=== PATIENT | male | born 1945 | race Caucasian/White ===

== ENCOUNTER 2017-01-28 18:11 | Emergency (ER) | payer MEDICARE ==
[2017-01-28 18:25] VITALS: BP 145/85
[2017-01-28] MEDS ORDERED: Ondansetron 4 MG Tab.DIS PO ONE (18:51)
--- NOTE | 2017-01-28 18:55 | EDM.PDOC ---
ED HPI GENERAL MEDICAL PROBLEM - General Chief Complaint: Neurological Problem Stated Complaint: COLD SWEAT,NAUSEA,DIZZY Time Seen by Provider: 01/28/17 18:20 Source of Information: Reports: Patient, Family, RN Notes Reviewed History Limitations: Reports: No Limitations - History of Present Illness INITIAL COMMENTS - FREE TEXT/NARRATIVE: 71-year-old gentleman presents emergency department today complaint of dizziness , he states it came on suddenly while he was eating dinner the room was spinning rapidly by the time he presents emergency department that has resolved he was diaphoretic also resolved he still feels nauseated although the majority of the dizziness has improved. 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 didnt have chance to do- Other Neuro History: raya's palsy Psychiatric History: Reports: Addiction Endocrine/Metabolic History: Reports: Diabetes, Type II Other Endocrine/Metabolic History: familial hypercalcemia- [facility] [place] [place] [facility] of DNA Other Hematologic History: hypercalcemia- familial Other Dermatologic History: 2 month history of left hand bumps - Past Surgical History HEENT Surgical History: Reports: Other (See Below) Other HEENT Surgeries/Procedures: both side staminectomy Respiratory Surgical History: Reports: Other (See Below) Other Respiratory Surgeries/Procedures: bronchoscopy Musculoskeletal Surgical History: Reports: Other (See Below) Other Musculoskeletal Surgeries/Procedures:: arm surgery plate and ligment repair Social & Family History - Tobacco Use Smoking Status *Q: Never Smoker Years of Tobacco use: 5 Packs/Tins Daily: 0.5 Used Tobacco, but Quit: Yes Month Tobacco Last Used: march Second Hand Smoke Exposure: Yes - Caffeine Use Caffeine Use: Reports: None - Alcohol Use Days Per Week of Alcohol Use: 0 - Recreational Drug Use Recreational Drug Use: No Drug Use in Last 12 Months: No Recreational Drug Use Frequency: Not Used In Over 6 Months - Living Situation & Occupation Living situation: Reports: Occupation: Retired ED ROS GENERAL - Review of Systems Review Of Systems: See Below Constitutional: Reports: Diaphoresis HEENT: Reports: Other (Dizzy) Respiratory: Reports: No Symptoms Cardiovascular: Reports: No Symptoms GI/Abdominal: Reports: Nausea : Reports: No Symptoms Musculoskeletal: Reports: No Symptoms Skin: Reports: No Symptoms Neurological: Reports: Dizziness ED EXAM, DIZZINESS - Physical Exam Exam: See Below Text/Narrative:: General: Male, not in any distress, alert and oriented x3 HEENT: head is atraumatic normocephalic, eyes pupils equal round reactive to light, sclera clear no conjunctivitis appreciated, extraocular eye movements intact. Ears tympanic membranes clear and terry landmarks and light reflex are present bilaterally canals are clear. Nose no septal deviation, nares are clear, no blood present. Mouth mucosa is moist and pink no erythema or exudate noted in soft palate, tongue is midline uvula is midline, dentition is intact. Neck: Supple no thyromegaly no tracheal deviation. Nodes: Cervical nodes subclavicular nodes nontender no palpable lymphadenopathy noted. Lungs: clear to auscultation bilaterally with symmetrical respirations, no adventitious noise appreciated. CV: Regular rate and rhythm S1 and S2 appreciated no murmurs rubs or gallops noted. Abdomen: Soft, nontender, no palpable masses or organomegaly appreciated, no distention no guarding bowel sounds are present, [scars ]. Neuro: Cranial nerves II through XII grossly intact, hints exam negative Course - Vital Signs Last Recorded V/S: Last Vital Signs Temp 97.7 F 01/28/17 18:23 Pulse 91 01/28/17 18:23 Resp 18 01/28/17 18:23 BP 145/85 H 01/28/17 18:23 Pulse Ox 96 01/28/17 18:23 - Orders/Labs/Meds Orders: Active Orders 24 hr Category Date Time Status EKG Documentation Completion [RC] ASDIRECTED Care 01/28/17 18:52 Active EKG 12 Lead [EK] Routine Ther 10/17/17 18:51 Ordered Labs: Laboratory Tests 01/28/17 01/28/17 Range/Units 19:02 19:02 WBC 16.0 H (4.5-11.0) K/uL RBC 5.64 (4.30-5.90) M/uL Hgb 16.0 H (12.0-15.0) g/dL Hct 47.1 (40.0-54.0) % MCV 84 (80-98) fL MCH 28 (27-31) pg MCHC 34 (32-36) % Plt Count 252 (150-400) K/uL Add Manual Diff Yes Neutrophils % (Manual) 40 (36-66) % Lymphocytes % (Manual) 47 H (24-44) % Monocytes % (Manual) 12 H (2-6) % Eosinophils % (Manual) 1 L (2-4) % Sodium 140 (140-148) mmol/L Potassium 4.2 (3.6-5.2) mmol/L Chloride 105 (100-108) mmol/L Carbon Dioxide 27 (21-32) mmol/L Anion Gap 8.5 (5.0-14.0) mmol/L BUN 20 H D (7-18) mg/dL Creatinine 1.1 (0.8-1.3) mg/dL Est Cr Clr Drug Dosing 60.70 mL/min Estimated GFR (MDRD) > 60 (>60) Glucose 183 H (74-106) mg/dL Calcium 9.7 (8.5-10.1) mg/dL Total Bilirubin 0.5 (0.2-1.0) mg/dL AST 14 L (15-37) U/L ALT 26 (12-78) U/L Alkaline Phosphatase 109 (46-116) U/L CK-MB (CK-2) 2.1 (0-3.6) mg/mL Troponin I < 0.017 (0.000-0.056) ng/mL Total Protein 7.4 (6.4-8.2) g/dL Albumin 4.0 (3.4-5.0) g/dL Globulin 3.4 (2.3-3.5) g/dL Albumin/Globulin Ratio 1.2 (1.2-2.2) Meds: Medications Discontinued Medications Generic Name Dose Route Start Last Admin Trade Name Freq PRN Reason Stop Dose Admin Ondansetron HCl 4 mg 01/28/17 18:51 01/28/17 19:19 Zofran Odt PO 01/28/17 18:52 4 mg ONETIME ONE Administration Departure - Departure Time of Disposition: 19:56 Disposition: Home, Self-Care 01 Condition: Good Clinical Impression: Vertigo - Discharge Information Referrals: Aki Slaughter MD [Primary Care Provider] - Forms: ED Department Discharge Additional Instructions: Please followup with your primary care provider in 3-5 days for reevaluation of your elevated white count, please call return to the emergency department with worsening of symptoms. - My Orders Last 24 Hours: My Active Orders 01/28/17 18:51 EKG 12 Lead [EK] Routine 01/28/17 18:52 EKG Documentation Completion [RC] ASDIRECTED - Assessment/Plan Last 24 Hours: My Active Orders 01/28/17 18:51 EKG 12 Lead [EK] Routine 01/28/17 18:52 EKG Documentation Completion [RC] ASDIRECTED Plan: Assessment Acuity = acute Site and laterality = vertigo Etiology = unclear etiology Manifestations = none Location of injury = Home Lab values = WBC elevated at 16 consistent leukocytosis, remainder lab work is negative EKG demonstrates left axis deviation there is no ST changes or depressions this EKG is similar to prior troponin was negative Plan I did review lab work EKG results with him I counseled him about his elevated white count I see no source of infection at this time possibly there is a relationship to his vertigo I've asked to follow-up with his primary care for further evaluation 3-5 days. He remained asymptomatic while in the emergency department Zofran was provided for nausea symptoms which then resolved. Patient was in agreement with the plan all questions were answered, they were instructed to return to the emergency department or call for worsening symptoms. This note was dictated using [employer] voice recognition software please call with any questions.
== END 2017-01-28 20:12 | disposition home or self-care (01) ==
LOC: JP.ED 18:11
DX: R42 Dizziness and giddiness (principal); E11.9 Type 2 diabetes mellitus without complications; Z87.891 Personal history of nicotine dependence; Z88.0 Allergy status to penicillin; Z88.7 Allergy status to serum and vaccine
CPT/HCPCS: 36415; 80053; 82553; 84484; 85025; 93005; 99284; A9270; 93010; 99283

== ENCOUNTER 2017-05-31 21:54 | Emergency (ER) | payer MEDICARE ==
[2017-05-31 23:58] VITALS: BP 138/71
[2017-06-01] MEDS ORDERED: Potassium Chloride 10% 20 MEQ/15 ML Soln 15 ML UD Cup PO ONE (00:12)
--- NOTE | 2017-06-01 01:13 | EDM.PDOC ---
ED HPI GENERAL MEDICAL PROBLEM - General Chief Complaint: Diabetic Complaint Stated Complaint: BLOOD SUGARS Time Seen by Provider: 05/31/17 23:11 Source of Information: Reports: Patient, Family History Limitations: Reports: No Limitations - History of Present Illness INITIAL COMMENTS - FREE TEXT/NARRATIVE: This patient has pancreatic cancer and has been started on chemotherapy. He has diabetes also was started on insulin glargine April 23 at that time his blood sugar was in the 200s and he was getting up to 20 units of Lantus per day. His blood sugars have gradually come down and he is been weaned back to 12 units in the p.m. and his first dose was last night. Today however is morning blood sugar was 63 and then tonight it dropped down to 48. He became a little bit shaky. And was given orange juice but the blood sugar doesn't appear to come up. 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 - Related Data Allergies Allergy/AdvReac Type Severity Reaction Status Date / Time Influenza Virus Vaccines Allergy Severe Respiratory Verified 05/31/17 22:06 Distress Penicillins Allergy Severe Swelling Verified 05/31/17 22:06 Home Meds: Home Meds glipiZIDE [Glucotrol XL] 5 mg PO BID 06/16/14 [History] Ibuprofen [Advil] 400 mg PO BID PRN 01/29/15 [History] Escitalopram Oxalate [Escitalopram Oxalate] 1 tab PO DAILY 05/31/17 [History] Insulin Glarg,Human.Rec.Analog [Lantus Solostar] 12 units SUBCUT BEDTIME [History] Omeprazole [priLOSEC OTC] 1 tab PO DAILY 05/31/17 [History] Past Medical History HEENT History: Reports: Hard of Hearing Other Respiratory History: 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 didnt have chance to do- Neurological History: Reports: Concussion Other Neuro History: raya's palsy Psychiatric History: Reports: Addiction Endocrine/Metabolic History: Reports: Diabetes, Type II Other Endocrine/Metabolic History: familial hypercalcemia- [facility] [place] [place] [facility] of DNA Other Hematologic History: hypercalcemia- familial Immunologic History: Reports: Immunosuppression Oncologic (Cancer) History: Reports: Pancreatic Other Dermatologic History: 2 month history of left hand bumps - Past Surgical History HEENT Surgical History: Reports: Other (See Below) Other HEENT Surgeries/Procedures: both side staminectomy Other Cardiovascular Surgeries/Procedures: negative stress test, quit breathin after flu shot Respiratory Surgical History: Reports: Other (See Below) Other Respiratory Surgeries/Procedures: bronchoscopy GI Surgical History: Reports: Other (See Below) Other GI Surgeries/Procedures: exp lap Musculoskeletal Surgical History: Reports: Other (See Below) Other Musculoskeletal Surgeries/Procedures:: arm surgery plate and ligment repair Social & Family History - Tobacco Use Smoking Status *Q: Former Smoker Years of Tobacco use: 5 Packs/Tins Daily: 0.5 Used Tobacco, but Quit: Yes Month Tobacco Last Used: 1978 Second Hand Smoke Exposure: Yes - Caffeine Use Caffeine Use: Reports: None - Alcohol Use Days Per Week of Alcohol Use: 0 - Recreational Drug Use Recreational Drug Use: No Drug Use in Last 12 Months: No Recreational Drug Use Frequency: Not Used In Over 6 Months - Living Situation & Occupation Living situation: Reports: Occupation: Retired ED ROS GENERAL - Review of Systems Review Of Systems: See Below Constitutional: Denies: Fever, Chills, Malaise, Weakness HEENT: Reports: No Symptoms Respiratory: Reports: No Symptoms Cardiovascular: Reports: No Symptoms Endocrine: Reports: No Symptoms GI/Abdominal: Reports: No Symptoms : Reports: No Symptoms Musculoskeletal: Reports: No Symptoms, Muscle Pain Neurological: Reports: No Symptoms Psychiatric: Reports: No Symptoms ED EXAM GENERAL NO PERIP PULSE - Physical Exam Exam: See Below Exam Limited By: No Limitations General Appearance: Alert, WD/WN, No Apparent Distress Eye Exam: Bilateral Eye: Normal Inspection Ears: Normal External Exam Throat/Mouth: Normal Oropharynx Head: Atraumatic Neck: Normal Inspection Respiratory/Chest: Lungs Clear Cardiovascular: Regular Rate, Rhythm GI/Abdominal: Soft, Non-Tender Extremities: Normal Inspection Neurological: Alert, Oriented Psychiatric: Normal Affect Skin Exam: Warm, Dry Course - Vital Signs Last Recorded V/S: Last Vital Signs Temp 35.6 C 05/31/17 22:17 Pulse 75 05/31/17 22:17 Resp 14 05/31/17 23:57 BP 138/71 05/31/17 23:57 Pulse Ox 98 05/31/17 23:57 - Orders/Labs/Meds Labs: Laboratory Tests 05/31/17 05/31/17 Range/Units 23:25 23:25 WBC 13.2 H (4.5-11.0) K/uL RBC 3.37 L (4.30-5.90) M/uL Hgb 9.8 L D (12.0-15.0) g/dL Hct 30.5 L (40.0-54.0) % MCV 91 (80-98) fL MCH 29 (27-31) pg MCHC 32 (32-36) % Plt Count 150 (150-400) K/uL Neut % (Auto) 46 (36-66) % Lymph % (Auto) 41 (24-44) % [place] % (Auto) 13 H (2-6) % Eos % (Auto) 1 L (2-4) % Baso % (Auto) 0 (0-1) % Sodium 142 (140-148) mmol/L Potassium 2.8 L* (3.6-5.2) mmol/L Chloride 106 (100-108) mmol/L Carbon Dioxide 28 (21-32) mmol/L Anion Gap 10.8 (5.0-14.0) mmol/L BUN 10 (7-18) mg/dL Creatinine 0.8 (0.8-1.3) mg/dL Est Cr Clr Drug Dosing 83.47 mL/min Estimated GFR (MDRD) > 60 (>60) Glucose 74 (74-106) mg/dL Calcium 8.8 (8.5-10.1) mg/dL Total Bilirubin 1.6 H D (0.2-1.0) mg/dL AST 76 H D (15-37) U/L ALT 115 H (12-78) U/L Alkaline Phosphatase 330 H D (46-116) U/L Total Protein 5.8 L (6.4-8.2) g/dL Albumin 2.4 L (3.4-5.0) g/dL Globulin 3.4 (2.3-3.5) g/dL Albumin/Globulin Ratio 0.7 L (1.2-2.2) Meds: Medications Discontinued Medications Generic Name Dose Route Start Last Admin Trade Name Freq PRN Reason Stop Dose Admin Potassium Chloride 40 meq 06/01/17 00:12 06/01/17 00:28 Potassium Chloride Solution PO 06/01/17 00:13 40 meq ONETIME ONE Administration - Re-Assessments/Exams Free Text/Narrative Re-Assessment/Exam: 06/01/17 02:41 Initial [id number] glucose was 73. Patient received some more orange juice and by a sandwich. After an appropriate. The sugar was repeated and it was in the 90s. Actual reading is not available at time of this dictation. Also potassium noted to be 2.8. Patient is not on any kind of diuretics. I told him that I don't know if his chemotherapy has anything to do with this or not he was given potassium chloride 40 mEq the of the solution. I discussed with his that about a quarter teaspoon of salt substitute daily can be added to his diet. You can discuss this 06/01/17 02:42 Departure - Departure Time of Disposition: 01:11 Disposition: Home, Self-Care 01 Condition: Fair Clinical Impression: Hypoglycemia - Discharge Information Instructions: Hypoglycemia Referrals: Aki Slaughter MD [Primary Care Provider] - Forms: ED Department Discharge Additional Instructions: Your blood sugar should be checked at 5 AM this morning and then again at 8 AM. It would be best to adjust the insulins downward from 12 units in the p.m. down to either 8 or 10. Tomorrow night his sugar should be checked at bedtime and then again several hours later. And follow-up with your on Friday
== END 2017-06-01 01:36 | disposition home or self-care (01) ==
LOC: JP.ED 21:54
DX: E11.649 Type 2 diabetes mellitus with hypoglycemia without coma (principal); K21.9 Gastro-esophageal reflux disease without esophagitis; Z87.891 Personal history of nicotine dependence; Z79.4 Long term (current) use of insulin; Z79.899 Other long term (current) drug therapy; Z88.0 Allergy status to penicillin; Z88.7 Allergy status to serum and vaccine
CPT/HCPCS: 36415; 80053; 82962; 85025; 99284; A9270; 99283

== ENCOUNTER 2017-06-19 06:41 | Emergency (ER) | payer MEDICARE ==
--- NOTE | 2017-06-19 06:55 | EDM.PDOC ---
<OfficerMatthew - Last Filed: 06/19/17 06:51> ED HPI GENERAL MEDICAL PROBLEM - General Chief Complaint: Fever Stated Complaint: [facility] Time Seen by Provider: 06/19/17 06:47 Source of Information: Reports: Patient, EMS, RN Notes Reviewed History Limitations: Reports: No Limitations - History of Present Illness INITIAL COMMENTS - FREE TEXT/NARRATIVE: 71-year-old gentleman presents emergency department today via EMS services, complaint of not feeling well weakness near syncopal event. He has a known history of pancreatic cancer recent diagnosis in March he is currently undergoing chemotherapy last treatment was 11 June he has plan for chemotherapy treatment next week. States he started feeling poor yesterday afternoon generalized weakness no shortness of breath cough chest pain Treatments DIRECTOR OF SUPPLY CHAIN: Reports: IV/IO - Related Data Allergies Allergy/AdvReac Type Severity Reaction Status Date / Time Influenza Virus Vaccines Allergy Severe Respiratory Verified 06/19/17 07:01 Distress Penicillins Allergy Severe Swelling Verified 06/19/17 07:01 Home Meds: Home Meds glipiZIDE [Glucotrol XL] 5 mg PO BID 06/16/14 [History] Escitalopram Oxalate [Escitalopram Oxalate] 1 tab PO DAILY 05/31/17 [History] Omeprazole [priLOSEC OTC] 1 tab PO DAILY 05/31/17 [History] Diphenoxylate HCl/Atropine [Lomotil Tablet] 2 each PO TID PRN 06/19/17 [History] Hydrocortisone/Pramoxine [Proctofoam-Hc 1%-1% Foam] 1 dose TOP ASDIRECTED [History] Loperamide HCl [Loperamide] 1 tab PO ASDIRECTED PRN 06/19/17 [History] Prochlorperazine Maleate [Compazine] 1 tab PO Q6H PRN 06/19/17 [History] Past Medical History HEENT History: Reports: Hard of Hearing Other Respiratory History: 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 didnt have chance to do- Neurological History: Reports: Concussion Other Neuro History: raya's palsy Psychiatric History: Reports: Addiction Endocrine/Metabolic History: Reports: Diabetes, Type II Other Endocrine/Metabolic History: familial hypercalcemia- [employer] [facility] [place] [place] [facility] of DNA Other Hematologic History: hypercalcemia- familial Immunologic History: Reports: Immunosuppression Oncologic (Cancer) History: Reports: Pancreatic Other Dermatologic History: 2 month history of left hand bumps - Past Surgical History HEENT Surgical History: Reports: Other (See Below) Other HEENT Surgeries/Procedures: both side staminectomy Other Cardiovascular Surgeries/Procedures: negative stress test, quit breathin after flu shot Respiratory Surgical History: Reports: Other (See Below) Other Respiratory Surgeries/Procedures: bronchoscopy GI Surgical History: Reports: Other (See Below) Other GI Surgeries/Procedures: exp lap Musculoskeletal Surgical History: Reports: Other (See Below) Other Musculoskeletal Surgeries/Procedures:: arm surgery plate and ligment repair Social & Family History - Tobacco Use Smoking Status *Q: Former Smoker Years of Tobacco use: 5 Packs/Tins Daily: 0.5 Used Tobacco, but Quit: Yes Month Tobacco Last Used: 1978 Second Hand Smoke Exposure: Yes - Caffeine Use Caffeine Use: Reports: None - Alcohol Use Days Per Week of Alcohol Use: 0 - Recreational Drug Use Recreational Drug Use: No Drug Use in Last 12 Months: No Recreational Drug Use Frequency: Not Used In Over 6 Months - Living Situation & Occupation Living situation: Reports: Occupation: Retired ED ROS GENERAL - Review of Systems Review Of Systems: See Below Constitutional: Reports: Fever HEENT: Reports: No Symptoms Respiratory: Reports: No Symptoms Cardiovascular: Reports: No Symptoms GI/Abdominal: Reports: No Symptoms : Reports: No Symptoms Musculoskeletal: Reports: No Symptoms Skin: Reports: No Symptoms Neurological: Reports: No Symptoms ED EXAM, GI/ABD - Physical Exam Exam: See Below Text/Narrative:: General: Male ill-appearing, alert and oriented x3 HEENT: head is atraumatic normocephalic, eyes pupils equal round reactive to light, sclera yellow no conjunctivitis appreciated. Ears blocked by cerumen bilaterally. Nose no septal deviation, nares are clear, no blood present. Mouth mucosa is moist and pink no erythema or exudate noted in soft palate, tongue is midline uvula is midline, dentition is intact. Neck: Supple no thyromegaly no tracheal deviation. Nodes: Cervical nodes subclavicular nodes nontender no palpable lymphadenopathy noted. Lungs: clear to auscultation bilaterally with symmetrical respirations, no adventitious noise appreciated. CV: Regular rate and rhythm S1 and S2 appreciated no murmurs rubs or gallops noted. Abdomen: Soft, generalized tenderness to palpation, no palpable masses or organomegaly appreciated, no distention no guarding bowel sounds are present, . Neuro: Cranial nerves II through XII grossly intact Skin: Warm and dry, intact Extremities: No lower extremity edema appreciated, . Course - Vital Signs Last Recorded V/S: Last Vital Signs Temp 38.8 C H 06/19/17 07:43 Pulse 141 H 06/19/17 08:08 Resp 15 06/19/17 08:08 BP 152/76 H 06/19/17 08:08 Pulse Ox 96 06/19/17 08:08 - Orders/Labs/Meds Orders: Active Orders 24 hr Category Date Time Status EKG Documentation Completion [RC] ASDIRECTED Care 06/19/17 07:12 Active Nina Catheter Insertion [Insert Urinary Catheter] [OM. Care 06/19/17 07:15 Ordered PC] Q24H Urinary Catheter Assessment [RC] ASDIRECTED Care 06/19/17 07:13 Active Vital Signs [RC] Q1H Care 06/19/17 06:48 Active Chest 1V Frontal [CR] Stat Exams 06/19/17 07:54 Taken CULTURE BLOOD [BC] Urgent Lab 06/19/17 06:53 Received CULTURE BLOOD [BC] Urgent Lab 06/19/17 07:00 Received H INFLUENZAE B ANTIBODY,IGG [REF] Routine Lab 06/19/17 06:53 Stop Req Lactated Ringers [Ringers, Lactated] 1,000 ml Med 06/19/17 07:00 Active IV ASDIRECTED Lactated Ringers [Ringers, Lactated] 1,000 ml Med 06/19/17 07:30 Active IV BOLUS Levofloxacin/Dextrose 5%-Water [Levaquin in D5W 750 MG/ Med 06/19/17 07:00 Active 150 ML] 750 mg Premix Bag 1 bag IV Q24H metroNIDAZOLE/Normal Saline [Flagyl 500 MG in NS 100 ML Med 06/19/17 07:55 Active ] 500 mg Premix Bag 1 bag IV ONETIME Blood Culture x2 Reflex Set [OM.PC] Urgent Oth 06/19/17 06:48 Ordered EKG 12 Lead [EK] Routine Ther 06/19/17 07:12 Ordered Medication Orders Lactated Ringer's (Ringers, Lactated) 1,000 mls @ 999 mls/hr IV ASDIRECTED [facility] Last Admin: 06/19/17 06:52 Dose: 999 mls/hr Levofloxacin/Dextrose 750 mg/ (Premix) 150 mls @ 100 mls/hr IV Q24H [facility] Last Admin: 06/19/17 07:00 Dose: 100 mls/hr Lactated Ringer's (Ringers, Lactated) 1,000 mls @ 1,000 mls/hr IV BOLUS ONE Stop: 06/19/17 08:29 Last Admin: 06/19/17 07:47 Dose: 1,000 mls/hr Metronidazole 500 mg/ Premix 100 mls @ 100 mls/hr IV ONETIME ONE Stop: 06/19/17 08:54 Last Admin: 06/19/17 08:09 Dose: 100 mls/hr Labs: Laboratory Tests 06/19/17 06/19/17 06/19/17 Range/Units 06:53 06:53 06:53 WBC 14.8 H (4.5-11.0) K/uL RBC 4.06 L (4.30-5.90) M/uL Hgb 11.6 L (12.0-15.0) g/dL Hct 35.4 L (40.0-54.0) % MCV 87 (80-98) fL MCH 29 (27-31) pg MCHC 33 (32-36) % Plt Count 151 (150-400) K/uL Neut % (Auto) 90 H (36-66) % Lymph % (Auto) 8 L (24-44) % [place] % (Auto) 1 L (2-6) % Eos % (Auto) 0 L (2-4) % Baso % (Auto) 0 (0-1) % Sodium 144 (140-148) mmol/L Potassium 3.2 L (3.6-5.2) mmol/L Chloride 107 (100-108) mmol/L Carbon Dioxide 23 (21-32) mmol/L Anion Gap 17.2 H (5.0-14.0) mmol/L BUN 11 (7-18) mg/dL Creatinine 1.1 (0.8-1.3) mg/dL Est Cr Clr Drug Dosing 60.70 mL/min Estimated GFR (MDRD) > 60 (>60) Glucose 131 H (74-106) mg/dL Lactic Acid 3.5 H (0.4-2.0) mmol/L Calcium 8.8 (8.5-10.1) mg/dL Total Bilirubin 2.9 H D (0.2-1.0) mg/dL AST 76 H (15-37) U/L ALT 43 (12-78) U/L Alkaline Phosphatase 390 H (46-116) U/L C-Reactive Protein 5.85 H (0.0-0.3) mg/dL Total Protein 6.2 L (6.4-8.2) g/dL Albumin 2.5 L (3.4-5.0) g/dL Globulin 3.7 H (2.3-3.5) g/dL Albumin/Globulin Ratio 0.7 L (1.2-2.2) Urine Color Urine Appearance Urine pH (4.5-8.0) Ur Specific [place] (1.008-1.030) Urine Protein (NEGATIVE) mg/dL Urine Glucose (UA) (NEGATIVE) mg/dL Urine Ketones (NEGATIVE) mg/dL Urine Occult Blood (NEGATIVE) Urine Nitrite (NEGAITVE) Urine Bilirubin (NEGATIVE) Urine Urobilinogen (NORMAL) mg/dL Ur Leukocyte Esterase (NEGATIVE) Urine RBC (0-5) Urine WBC (0-5) Ur Epithelial Cells Amorphous Sediment Urine Bacteria Urine Mucus 06/19/17 Range/Units 07:25 WBC (4.5-11.0) K/uL RBC (4.30-5.90) M/uL Hgb (12.0-15.0) g/dL Hct (40.0-54.0) % MCV (80-98) fL MCH (27-31) pg MCHC (32-36) % Plt Count (150-400) K/uL Neut % (Auto) (36-66) % Lymph % (Auto) (24-44) % [place] % (Auto) (2-6) % Eos % (Auto) (2-4) % Baso % (Auto) (0-1) % Sodium (140-148) mmol/L Potassium (3.6-5.2) mmol/L Chloride (100-108) mmol/L Carbon Dioxide (21-32) mmol/L Anion Gap (5.0-14.0) mmol/L BUN (7-18) mg/dL Creatinine (0.8-1.3) mg/dL Est Cr Clr Drug Dosing mL/min Estimated GFR (MDRD) (>60) Glucose (74-106) mg/dL Lactic Acid (0.4-2.0) mmol/L Calcium (8.5-10.1) mg/dL Total Bilirubin (0.2-1.0) mg/dL AST (15-37) U/L ALT (12-78) U/L Alkaline Phosphatase (46-116) U/L C-Reactive Protein (0.0-0.3) mg/dL Total Protein (6.4-8.2) g/dL Albumin (3.4-5.0) g/dL Globulin (2.3-3.5) g/dL Albumin/Globulin Ratio (1.2-2.2) Urine Color Yellow Urine Appearance Clear Urine pH 5.0 (4.5-8.0) Ur Specific [place] 1.005 L (1.008-1.030) Urine Protein Negative (NEGATIVE) mg/dL Urine Glucose (UA) Normal (NEGATIVE) mg/dL Urine Ketones 15 H (NEGATIVE) mg/dL Urine Occult Blood Moderate (NEGATIVE) Urine Nitrite Negative (NEGAITVE) Urine Bilirubin Negative (NEGATIVE) Urine Urobilinogen Normal (NORMAL) mg/dL Ur Leukocyte Esterase Negative (NEGATIVE) Urine RBC 0-5 (0-5) Urine WBC Not seen (0-5) Ur Epithelial Cells Not seen Amorphous Sediment Rare Urine Bacteria Not seen Urine Mucus Not seen Meds: Medications Generic Name Dose Route Start Last Admin Trade Name Freq PRN Reason Stop Dose Admin Lactated Ringer's 1,000 mls @ 999 mls/hr 06/19/17 07:00 06/19/17 06:52 Ringers, Lactated IV 999 mls/hr ASDIRECTED DEMETRIUS Administration Levofloxacin/Dextrose 750 mg/ 150 mls @ 100 mls/hr 06/19/17 07:00 06/19/17 07 :00 Premix IV 100 mls/hr Q24H DEMETRIUS Administration Lactated Ringer's 1,000 mls @ 1,000 mls/hr 06/19/17 07:30 06/19/17 07:47 Ringers, Lactated IV 06/19/17 08:29 1,000 mls/hr BOLUS ONE Administration Metronidazole 500 mg/ Premix 100 mls @ 100 mls/hr 06/19/17 07:55 06/19/17 08: 09 IV 06/19/17 08:54 100 mls/hr ONETIME ONE Administration Discontinued Medications Generic Name Dose Route Start Last Admin Trade Name Jenifer PRN Reason Stop Dose Admin Hydromorphone HCl 1 mg 06/19/17 08:13 06/19/17 08:18 Dilaudid IVPUSH 06/19/17 08:14 1 mg ONETIME ONE Administration Lidocaine HCl 10 ml 06/19/17 07:14 06/19/17 07:19 Xylocaine 2% Jelly MUCMEM 06/19/17 07:15 10 ml ONETIME ONE Administration Morphine Sulfate 4 mg 06/19/17 07:12 06/19/17 07:20 Morphine IVPUSH 06/19/17 07:13 4 mg ONETIME ONE Administration Departure - Departure Disposition: DC/Tfer to [facility] 02 Clinical Impression: Hypokalemia Sepsis Qualifiers: Sepsis type: sepsis due to unspecified organism Qualified Code(s): A41.9 - Sepsis, unspecified organism Pancreatic cancer Qualifiers: Pancreatic malignancy location: unspecified Qualified Code(s): C25.9 - Malignant neoplasm of pancreas, unspecified - Discharge Information Referrals: PCP,None [Primary Care Provider] - Forms: ED Department Discharge - My Orders Last 24 Hours: My Active Orders 06/19/17 07:12 EKG Documentation Completion [RC] ASDIRECTED EKG 12 Lead [EK] Routine 06/19/17 07:13 Urinary Catheter Assessment [RC] ASDIRECTED 06/19/17 07:15 Nina Catheter Insertion [Insert Urinary Catheter] [OM.PC] Q24H 06/19/17 07:30 Lactated Ringers [Ringers, Lactated] 1,000 ml IV BOLUS 06/19/17 07:54 Chest 1V Frontal [CR] Stat 06/19/17 07:55 metroNIDAZOLE/Normal Saline [Flagyl 500 MG in NS 100 ML] 500 mg Premix Bag 1 bag IV ONETIME - Assessment/Plan Last 24 Hours: My Active Orders 06/19/17 07:12 EKG Documentation Completion [RC] ASDIRECTED EKG 12 Lead [EK] Routine 06/19/17 07:13 Urinary Catheter Assessment [RC] ASDIRECTED 06/19/17 07:15 Nina Catheter Insertion [Insert Urinary Catheter] [OM.PC] Q24H 06/19/17 07:30 Lactated Ringers [Ringers, Lactated] 1,000 ml IV BOLUS 06/19/17 07:54 Chest 1V Frontal [CR] Stat 06/19/17 07:55 metroNIDAZOLE/Normal Saline [Flagyl 500 MG in NS 100 ML] 500 mg Premix Bag 1 bag IV ONETIME <Titi Hernandez G - Last Filed: 06/19/17 08:22> EKG INTERPRETATION EKG Date: 06/19/17 Time: 07:15 Rhythm: Other (ectopic atrial tachycardia) Rate (Beats/Min): 124 [place]: Normal P-Wave: Absent QRS: RBBB ST-T: Normal QT: Normal Comparison: Change From Previous EKG (Rhythm and rate changes primarily noted when compared with 01/28/17.) Course - Orders/Labs/Meds Labs: Laboratory Tests 06/19/17 06/19/17 06/19/17 Range/Units 06:53 06:53 06:53 WBC 14.8 H (4.5-11.0) K/uL RBC 4.06 L (4.30-5.90) M/uL Hgb 11.6 L (12.0-15.0) g/dL Hct 35.4 L (40.0-54.0) % MCV 87 (80-98) fL MCH 29 (27-31) pg MCHC 33 (32-36) % Plt Count 151 (150-400) K/uL Neut % (Auto) 90 H (36-66) % Lymph % (Auto) 8 L (24-44) % [place] % (Auto) 1 L (2-6) % Eos % (Auto) 0 L (2-4) % Baso % (Auto) 0 (0-1) % Sodium 144 (140-148) mmol/L Potassium 3.2 L (3.6-5.2) mmol/L Chloride 107 (100-108) mmol/L Carbon Dioxide 23 (21-32) mmol/L Anion Gap 17.2 H (5.0-14.0) mmol/L BUN 11 (7-18) mg/dL Creatinine 1.1 (0.8-1.3) mg/dL Est Cr Clr Drug Dosing 60.70 mL/min Estimated GFR (MDRD) > 60 (>60) Glucose 131 H (74-106) mg/dL Lactic Acid 3.5 H (0.4-2.0) mmol/L Calcium 8.8 (8.5-10.1) mg/dL Total Bilirubin 2.9 H D (0.2-1.0) mg/dL AST 76 H (15-37) U/L ALT 43 (12-78) U/L Alkaline Phosphatase 390 H (46-116) U/L C-Reactive Protein 5.85 H (0.0-0.3) mg/dL Total Protein 6.2 L (6.4-8.2) g/dL Albumin 2.5 L (3.4-5.0) g/dL Globulin 3.7 H (2.3-3.5) g/dL Albumin/Globulin Ratio 0.7 L (1.2-2.2) Urine Color Urine Appearance Urine pH (4.5-8.0) Ur Specific [place] (1.008-1.030) Urine Protein (NEGATIVE) mg/dL Urine Glucose (UA) (NEGATIVE) mg/dL Urine Ketones (NEGATIVE) mg/dL Urine Occult Blood (NEGATIVE) Urine Nitrite (NEGAITVE) Urine Bilirubin (NEGATIVE) Urine Urobilinogen (NORMAL) mg/dL Ur Leukocyte Esterase (NEGATIVE) Urine RBC (0-5) Urine WBC (0-5) Ur Epithelial Cells Amorphous Sediment Urine Bacteria Urine Mucus 06/19/17 Range/Units 07:25 WBC (4.5-11.0) K/uL RBC (4.30-5.90) M/uL Hgb (12.0-15.0) g/dL Hct (40.0-54.0) % MCV (80-98) fL MCH (27-31) pg MCHC (32-36) % Plt Count (150-400) K/uL Neut % (Auto) (36-66) % Lymph % (Auto) (24-44) % [place] % (Auto) (2-6) % Eos % (Auto) (2-4) % Baso % (Auto) (0-1) % Sodium (140-148) mmol/L Potassium (3.6-5.2) mmol/L Chloride (100-108) mmol/L Carbon Dioxide (21-32) mmol/L Anion Gap (5.0-14.0) mmol/L BUN (7-18) mg/dL Creatinine (0.8-1.3) mg/dL Est Cr Clr Drug Dosing mL/min Estimated GFR (MDRD) (>60) Glucose (74-106) mg/dL Lactic Acid (0.4-2.0) mmol/L Calcium (8.5-10.1) mg/dL Total Bilirubin (0.2-1.0) mg/dL AST (15-37) U/L ALT (12-78) U/L Alkaline Phosphatase (46-116) U/L C-Reactive Protein (0.0-0.3) mg/dL Total Protein (6.4-8.2) g/dL Albumin (3.4-5.0) g/dL Globulin (2.3-3.5) g/dL Albumin/Globulin Ratio (1.2-2.2) Urine Color Yellow Urine Appearance Clear Urine pH 5.0 (4.5-8.0) Ur Specific [place] 1.005 L (1.008-1.030) Urine Protein Negative (NEGATIVE) mg/dL Urine Glucose (UA) Normal (NEGATIVE) mg/dL Urine Ketones 15 H (NEGATIVE) mg/dL Urine Occult Blood Moderate (NEGATIVE) Urine Nitrite Negative (NEGAITVE) Urine Bilirubin Negative (NEGATIVE) Urine Urobilinogen Normal (NORMAL) mg/dL Ur Leukocyte Esterase Negative (NEGATIVE) Urine RBC 0-5 (0-5) Urine WBC Not seen (0-5) Ur Epithelial Cells Not seen Amorphous Sediment Rare Urine Bacteria Not seen Urine Mucus Not seen - Radiology Interpretation Free Text/Narrative:: CXR-mild fluid overload? No obvious pneumonia Departure - Departure Time of Disposition: 08:40 Condition: Serious
[2017-06-19] MEDS ORDERED: Lactated Ringers 1,000 ML IV SCH (07:00)
[2017-06-19] MEDS ORDERED: Levofloxacin/Dextrose 5%-Water 750 MG in Premix Bag 1 BAG IV SCH (07:00)
[2017-06-19] MEDS ORDERED: Morphine 4 MG/ML Syringe IVPUSH ONE (07:12)
[2017-06-19] MEDS ORDERED: Lidocaine 2% Jelly 10 ML Urojet MUCMEM ONE (07:14)
[2017-06-19] MEDS ORDERED: Lactated Ringers 1,000 ML IV ONE (07:30)
[2017-06-19] MEDS ORDERED: metroNIDAZOLE/Normal Saline 500 MG in Premix Bag 1 BAG IV ONE (07:55)
[2017-06-19] MEDS ORDERED: HYDROmorphone 1 MG/ML Syringe IVPUSH ONE (08:13)
[2017-06-19] MEDS ORDERED: Acetaminophen 500 MG Tab PO ONE (08:31)
[2017-06-19 08:48] VITALS: BP 160/69
--- NOTE | 2017-06-19 09:16 | CR ---
CHEST: AP portable CLINICAL HISTORY:Fever, leukocytosis COMPARISON:04/30/2016 FINDINGS: Heart size is normal. There is pulmonary vascular cephalization. There are some mild inter stitial prominence. There are no effusions. There is a right jugular catheter. Tip is in the superior vena cava. There is no pneumothorax IMPRESSION: Pulmonary vascular cephalization may represent some pulmonary venous hypertension Right Jugular catheter in good position
== END 2017-06-19 09:24 ==
LOC: JP.ED 06:41
DX: A41.9 Sepsis, unspecified organism (principal); E87.6 Hypokalemia; C25.9 Malignant neoplasm of pancreas, unspecified; K21.9 Gastro-esophageal reflux disease without esophagitis; E11.9 Type 2 diabetes mellitus without complications; Z87.891 Personal history of nicotine dependence; Z79.899 Other long term (current) drug therapy; Z88.0 Allergy status to penicillin; Z88.7 Allergy status to serum and vaccine; Z77.22 Contact with and (suspected) exposure to environmental tobacco smoke (acute) (chronic); Z79.84 Long term (current) use of oral hypoglycemic drugs
CPT/HCPCS: 51702; 71045; 80053; 81001; 83605; 85025; 86140; 86317; 87040; 87077; 87186; 87804; 93005; 96361; 96365; 96367; 96375; 99284; 99285; A9270; J1170; J1956; J2270; J7120; 36415; 93010

== ENCOUNTER 2017-07-22 11:17 | Emergency (ER) | payer MEDICARE ==
[2017-07-22 11:45] VITALS: BP 121/74
--- NOTE | 2017-07-22 12:26 | EDM.PDOC ---
ED HPI GENERAL MEDICAL PROBLEM - General Chief Complaint: General Stated Complaint: SHARP PAIN UPPER ABDOMEN Time Seen by Provider: 07/22/17 11:50 Source of Information: Reports: Patient, Family History Limitations: Reports: No Limitations - History of Present Illness INITIAL COMMENTS - FREE TEXT/NARRATIVE: 71-year-old gentleman who is being followed for pancreatic cancer, recently had a cholecystectomy but more concerning was the procedure he had after the cholecystectomy when he developed a severe GI bleed. Apparently the cancer eroded into a gastric vein or artery, interventional radiology had a coil the bleed. Today he bent over to lemon picker a remote control, felt a slight pull in the left side of the abdomen and it concerned him. He is in for reassurance. He has no pain when at rest, no shortness of breath, no nausea or vomiting. Onset: Sudden Duration: Hour(s): (Within the last hour and a half to 2 hours) Location: Reports: Abdomen Severity: Mild Associated Symptoms: Denies: Confusion, Chest Pain, Fever/Chills, Nausea/ Vomiting, Shortness of Breath Left Lower Abdominal Pain Score (Numeric/FACES): 2 - Related Data Allergies Allergy/AdvReac Type Severity Reaction Status Date / Time Influenza Virus Vaccines Allergy Severe Respiratory Verified 06/19/17 07:01 Distress Penicillins Allergy Severe Swelling Verified 06/19/17 07:01 Home Meds: Home Meds glipiZIDE [Glucotrol XL] 5 mg PO BID 06/16/14 [History] Prochlorperazine Maleate [Compazine] 1 tab PO Q6H PRN 06/19/17 [History] Ciprofloxacin HCl [Cipro] 500 mg PO BID 07/22/17 [History] Cyproheptadine HCl 4 mg PO TID 07/22/17 [History] Docusate Sodium 100 mg PO ASDIRECTED 07/22/17 [History] Escitalopram [Lexapro] 10 mg PO DAILY 07/22/17 [History] Magnesium 400 mg PO DAILY 07/22/17 [History] Ondansetron [Zofran ODT] 4 mg PO ASDIRECTED 07/22/17 [History] Pantoprazole Sodium 40 mg PO BID 07/22/17 [History] Tamsulosin HCl 0.4 mg PO DAILY 07/22/17 [History] amLODIPine Besylate [Amlodipine Besylate] 5 mg PO DAILY 07/22/17 [History] oxyCODONE HCl [Oxycodone HCl] 5 mg PO ASDIRECTED PRN 07/22/17 [History] Past Medical History HEENT History: Reports: Hard of Hearing Other Respiratory History: 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[place] [place] [facility] of DNA Other Hematologic History: hypercalcemia- familial Immunologic History: Reports: Immunosuppression Oncologic (Cancer) History: Reports: Pancreatic Other Dermatologic History: 2 month history of left hand bumps - Past Surgical History HEENT Surgical History: Reports: Other (See Below) Other HEENT Surgeries/Procedures: both side staminectomy Other Cardiovascular Surgeries/Procedures: negative stress test, quit breathin after flu shot Respiratory Surgical History: Reports: Other (See Below) Other Respiratory Surgeries/Procedures: bronchoscopy GI Surgical History: Reports: Other (See Below) Other GI Surgeries/Procedures: exp lap, 2 stents in pancreas Musculoskeletal Surgical History: Reports: Other (See Below) Other Musculoskeletal Surgeries/Procedures:: arm surgery plate and ligment repair Social & Family History - Tobacco Use Smoking Status *Q: Never Smoker Years of Tobacco use: 5 Packs/Tins Daily: 0.5 Used Tobacco, but Quit: Yes Month/Year Tobacco Last Used: 1978 Second Hand Smoke Exposure: Yes - Caffeine Use Caffeine Use: Reports: None - Alcohol Use Days Per Week of Alcohol Use: 0 - Recreational Drug Use Recreational Drug Use: No Drug Use in Last 12 Months: No Recreational Drug Use Frequency: Not Used In Over 6 Months - Living Situation & Occupation Living situation: Reports: Occupation: Retired ED ROS GENERAL - Review of Systems Review Of Systems: See Below Constitutional: Reports: Malaise. Denies: Fever, Chills Respiratory: Denies: Shortness of Breath GI/Abdominal: Reports: Abdominal Pain. Denies: Nausea, Vomiting Skin: Reports: Jaundice Neurological: Denies: Dizziness, Headache Psychiatric: Reports: No Symptoms ED EXAM, GENERAL - Physical Exam Exam: See Below Exam Limited By: No Limitations General Appearance: Alert, No Apparent Distress Eye Exam: Right Eye: Other (There is mild scleral icterus) Respiratory/Chest: No Respiratory Distress, Lungs Clear Cardiovascular: Regular Rate, Rhythm GI/Abdominal: Soft, Non-Tender (I really can't produce any tenderness to palpation, but if the patient starts to sit up against gravity he feels a slight pull in the anterior aspect of the left abdomen. No significant hernia is seen and his incision from the cholecystectomy is excellent and healing nicely) Course - Vital Signs Last Recorded V/S: Last Vital Signs Temp 96.8 F 07/22/17 11:47 Pulse 97 07/22/17 11:47 Resp 18 07/22/17 11:47 BP 121/74 07/22/17 11:47 Pulse Ox 94 L 07/22/17 11:47 - Re-Assessments/Exams Free Text/Narrative Re-Assessment/Exam: 07/22/17 12:29 Discussed his condition with radiology, and we will CT his abdomen and pelvis without contrast to assess the stability of his recent procedure. 07/22/17 13:14 Patient remained asymptomatic, CT shows no acute findings. He was reassured and will return if he develops other concerns. Departure - Departure Time of Disposition: 13:25 Disposition: Home, Self-Care 01 Condition: Good Clinical Impression: Strain of abdominal wall Qualifiers: Encounter type: initial encounter Qualified Code(s): S39.011A - Strain of muscle, fascia and tendon of abdomen, initial encounter Pancreatic cancer Qualifiers: Pancreatic malignancy location: unspecified Qualified Code(s): C25.9 - Malignant neoplasm of pancreas, unspecified - Discharge Information Instructions: Muscle Strain, [id number] Referrals: Aki Slaughter MD [Primary Care Provider] - Forms: ED Department Discharge Care Plan Goals: Continue activity as tolerated, resume your regular medications and return anytime if worsening or concerns.
--- NOTE | 2017-07-22 13:25 | CT ---
Abdomen Pelvis wo Cont Total DLP 815 mGycm. INDICATION: post op pain COMPARISON: CT 03/20/2017. FINDINGS: By report, the patient has known pancreatic adenocarcinoma. Interval changes of cholecystec armando and surgical clips near the pancreatic head with extensive beam hardening artifact. Common bile duct stent in place. Benign lipoma within the duodenum. No evidence for acute hemorrhage. Mild scatte red colonic diverticula. Mild prostatic enlargement. Tiny left pleural effusion is new. Consolidation versus atelectasis in the left lower lobe. Degenerative changes in the spine. 7 mm pulmonary nodule left lower lobe seen on prior exams obscured by infiltrate or atelectasis. No acute hemorrhage. Exam otherwise unremarkable. IMPRESSION: 1. No acute findings in the abdomen or pelvis. 2. Infiltrate or atelectasis left lower lobe.
== END 2017-07-22 13:25 | disposition home or self-care (01) ==
LOC: JP.ED 11:17
DX: S39.011A Strain of muscle, fascia and tendon of abdomen, initial encounter (principal); C25.9 Malignant neoplasm of pancreas, unspecified; E11.9 Type 2 diabetes mellitus without complications; Z88.7 Allergy status to serum and vaccine; Z88.0 Allergy status to penicillin; Z79.899 Other long term (current) drug therapy; Z87.891 Personal history of nicotine dependence; Z90.49 Acquired absence of other specified parts of digestive tract; X58.XXXA Exposure to other specified factors, initial encounter
CPT/HCPCS: 74176; 74176-26; 99284-25

== ENCOUNTER 2017-08-17 15:13 | Inpatient (IN) | payer MEDICARE ==
[2017-08-17] MEDS ORDERED: Acetaminophen/HYDROcodone 325-5 MG Tab PO ONE (15:54)
--- NOTE | 2017-08-17 17:10 | EDM.PDOC ---
ED HPI GENERAL MEDICAL PROBLEM - General Chief Complaint: Head Injury Stated Complaint: FALL, VIA NORTH Time Seen by Provider: 08/17/17 15:30 Source of Information: Reports: Patient, Family History Limitations: Reports: No Limitations - History of Present Illness INITIAL COMMENTS - FREE TEXT/NARRATIVE: pt tripped on a rug and he fell and he hit the rt forehead area. He was not knocked out and he did not have a syncopal episode. Onset: Today Duration: Hour(s): Location: Reports: Head, Other (pt has swelling above the rt eye. ) Associated Symptoms: Reports: No Other Symptoms Right Eye Pain Score (Numeric/FACES): 6 - Related Data Allergies Allergy/AdvReac Type Severity Reaction Status Date / Time Influenza Virus Vaccines Allergy Severe Respiratory Verified 06/19/17 07:01 Distress Penicillins Allergy Severe Swelling Verified 06/19/17 07:01 Home Meds: Home Meds glipiZIDE [Glucotrol XL] 5 mg PO BID 06/16/14 [History] Prochlorperazine Maleate [Compazine] 1 tab PO Q6H PRN 06/19/17 [History] Docusate Sodium 100 mg PO ASDIRECTED 07/22/17 [History] Escitalopram [Lexapro] 10 mg PO DAILY 07/22/17 [History] Magnesium 400 mg PO DAILY 07/22/17 [History] Ondansetron [Zofran ODT] 4 mg PO ASDIRECTED 07/22/17 [History] Tamsulosin HCl 0.4 mg PO DAILY 07/22/17 [History] Omeprazole Magnesium [Prilosec Otc] 20 mg PO DAILY 08/17/17 [History] Past Medical History HEENT History: Reports: Hard of Hearing Other Respiratory History: 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 Other Hematologic History: hypercalcemia- familial Immunologic History: Reports: Immunosuppression Oncologic (Cancer) History: Reports: Pancreatic Other Dermatologic History: 2 month history of left hand bumps - Past Surgical History HEENT Surgical History: Reports: Other (See Below) Other HEENT Surgeries/Procedures: both side staminectomy Other Cardiovascular Surgeries/Procedures: negative stress test, quit breathin after flu shot Respiratory Surgical History: Reports: Other (See Below) Other Respiratory Surgeries/Procedures: bronchoscopy GI Surgical History: Reports: Other (See Below) Other GI Surgeries/Procedures: exp lap, 2 stents in pancreas Musculoskeletal Surgical History: Reports: Other (See Below) Other Musculoskeletal Surgeries/Procedures:: arm surgery plate and ligment repair Social & Family History - Tobacco Use Smoking Status *Q: Unknown Ever Smoked Years of Tobacco use: 5 Packs/Tins Daily: 0.5 Used Tobacco, but Quit: Yes Month/Year Tobacco Last Used: 1978 Second Hand Smoke Exposure: Yes - Caffeine Use Caffeine Use: Reports: Coffee - Alcohol Use Days Per Week of Alcohol Use: 0 - Recreational Drug Use Recreational Drug Use: No Drug Use in Last 12 Months: No Recreational Drug Use Frequency: Not Used In Over 6 Months - Living Situation & Occupation Living situation: Reports: Occupation: Retired ED ROS GENERAL - Review of Systems Review Of Systems: See Below Constitutional: Reports: No Symptoms HEENT: Reports: No Symptoms Respiratory: Reports: No Symptoms Cardiovascular: Reports: No Symptoms Endocrine: Reports: Other (pt is a known diabetic) GI/Abdominal: Reports: No Symptoms, Other (pt has a known history of pancreatic ca and is on chemo. He normally has a elevated wbc. Pt will be going back to [place] friday or fri for a liver biopsy. ) : Reports: No Symptoms Musculoskeletal: Reports: No Symptoms Skin: Reports: No Symptoms ED EXAM, HEAD INJURY - Physical Exam Exam: See Below Text/Narrative:: pt arrived after a fall and he had hit the rt forehead area. He was having a sig headache. Exam Limited By: No Limitations General Appearance: Alert, Anxious Head: Other (pt has swelling above the rt eye. This is very tender, pupils are equal and reactive. ) Ears: Normal TMs Nose: Normal Inspection Throat/Mouth: Normal Inspection Neck: Non-Tender Respiratory: No Respiratory Distress Cardiovascular: Regular Rate, Rhythm GI/Abdominal Exam: Soft (Male) Exam: Deferred Rectal (Males) Exam: Deferred Back Exam: Normal Inspection Extremities: Normal Inspection Neurologic: Alert Course - Vital Signs Last Recorded V/S: Last Vital Signs Temp 38.8 C H 08/17/17 17:29 Pulse 115 H 08/17/17 17:29 Resp 18 08/17/17 17:29 BP 134/64 08/17/17 17:29 Pulse Ox 95 08/17/17 17:29 - Orders/Labs/Meds Orders: Active Orders 24 hr Category Date Time Status Chest 1V Frontal [CR] Stat Exams 08/17/17 17:32 Taken Chest 2V [CR] Stat Exams 08/17/17 18:28 Ordered Head wo Cont [CT] Stat Exams 08/17/17 15:53 Taken CULTURE BLOOD [BC] Urgent Lab 08/17/17 16:10 Received CULTURE BLOOD [BC] Urgent Lab 08/17/17 17:48 Received CULTURE URINE [RM] Stat Lab 08/17/17 17:41 Received LACTIC ACID [CHEM] Stat Lab 08/17/17 18:24 Ordered UA W/MICROSCOPIC [URIN] Urgent Lab 08/17/17 16:38 Ordered Blood Culture x2 Reflex Set [OM.PC] Urgent Oth 08/17/17 17:37 Ordered Labs: Laboratory Tests 08/17/17 08/17/17 08/17/17 Range/Units 16:10 16:10 16:10 WBC 16.3 H (4.5-11.0) K/uL RBC 3.92 L (4.30-5.90) M/uL Hgb 11.6 L (12.0-15.0) g/dL Hct 34.9 L (40.0-54.0) % MCV 89 (80-98) fL MCH 30 (27-31) pg MCHC 33 (32-36) % Plt Count 284 (150-400) K/uL Neut % (Auto) 81 H (36-66) % Lymph % (Auto) 10 L (24-44) % [place] % (Auto) 10 H (2-6) % Eos % (Auto) 0 L (2-4) % Baso % (Auto) 0 (0-1) % Sodium 135 L (140-148) mmol/L Potassium 3.7 (3.6-5.2) mmol/L Chloride 100 (100-108) mmol/L Carbon Dioxide 23 (21-32) mmol/L Anion Gap 15.7 H (5.0-14.0) mmol/L BUN 12 (7-18) mg/dL Creatinine 0.7 L (0.8-1.3) mg/dL Est Cr Clr Drug Dosing 93.99 mL/min Estimated GFR (MDRD) > 60 (>60) Glucose 158 H (74-106) mg/dL Calcium 9.4 (8.5-10.1) mg/dL Total Bilirubin 2.5 H (0.2-1.0) mg/dL AST 95 H (15-37) U/L ALT 141 H (12-78) U/L Alkaline Phosphatase 1125 H (46-116) U/L Total Protein 6.5 (6.4-8.2) g/dL Albumin 2.6 L (3.4-5.0) g/dL Globulin 3.9 H (2.3-3.5) g/dL Albumin/Globulin Ratio 0.7 L (1.2-2.2) Amylase 18 L (25-115) U/L Lipase 62 L (73-393) U/L Urine Color Urine Appearance Urine pH (4.5-8.0) Ur Specific [place] (1.008-1.030) Urine Protein (NEGATIVE) mg/dL Urine Glucose (UA) (NEGATIVE) mg/dL Urine Ketones (NEGATIVE) mg/dL Urine Occult Blood (NEGATIVE) Urine Nitrite (NEGAITVE) Urine Bilirubin (NEGATIVE) Urine Urobilinogen (NORMAL) mg/dL Ur Leukocyte Esterase (NEGATIVE) Urine RBC (0-5) Urine WBC (0-5) Ur Epithelial Cells Amorphous Sediment Urine Bacteria Urine Mucus 08/17/17 Range/Units 16:38 WBC (4.5-11.0) K/uL RBC (4.30-5.90) M/uL Hgb (12.0-15.0) g/dL Hct (40.0-54.0) % MCV (80-98) fL MCH (27-31) pg MCHC (32-36) % Plt Count (150-400) K/uL Neut % (Auto) (36-66) % Lymph % (Auto) (24-44) % [place] % (Auto) (2-6) % Eos % (Auto) (2-4) % Baso % (Auto) (0-1) % Sodium (140-148) mmol/L Potassium (3.6-5.2) mmol/L Chloride (100-108) mmol/L Carbon Dioxide (21-32) mmol/L Anion Gap (5.0-14.0) mmol/L BUN (7-18) mg/dL Creatinine (0.8-1.3) mg/dL Est Cr Clr Drug Dosing mL/min Estimated GFR (MDRD) (>60) Glucose (74-106) mg/dL Calcium (8.5-10.1) mg/dL Total Bilirubin (0.2-1.0) mg/dL AST (15-37) U/L ALT (12-78) U/L Alkaline Phosphatase (46-116) U/L Total Protein (6.4-8.2) g/dL Albumin (3.4-5.0) g/dL Globulin (2.3-3.5) g/dL Albumin/Globulin Ratio (1.2-2.2) Amylase (25-115) U/L Lipase (73-393) U/L Urine Color [place] Urine Appearance Slightly cloudy Urine pH 5.0 (4.5-8.0) Ur Specific [place] 1.020 (1.008-1.030) Urine Protein Negative (NEGATIVE) mg/dL Urine Glucose (UA) Normal (NEGATIVE) mg/dL Urine Ketones 15 H (NEGATIVE) mg/dL Urine Occult Blood Negative (NEGATIVE) Urine Nitrite Negative (NEGAITVE) Urine Bilirubin Small (NEGATIVE) Urine Urobilinogen 8 (NORMAL) mg/dL Ur Leukocyte Esterase Negative (NEGATIVE) Urine RBC 0-5 (0-5) Urine WBC 0-5 (0-5) Ur Epithelial Cells Few Amorphous Sediment Few Urine Bacteria Not seen Urine Mucus Not seen Meds: Medications Discontinued Medications Generic Name Dose Route Start Last Admin Trade Name Freq PRN Reason Stop Dose Admin Acetaminophen 650 mg 08/17/17 18:22 Tylenol PO 08/17/17 18:23 NOW ONE Hydrocodone Bitart/Acetaminophen 1 tab 08/17/17 15:54 08/17/17 16:45 [place] 325-5 Mg PO 08/17/17 15:55 1 tab ONETIME ONE Administration Heparin Sodium (Porcine) 500 units 08/17/17 17:18 08/17/17 17:22 Heparin Lock Flush 100 Units/Ml FLUSH 08/17/17 17:19 500 units ASDIRECTED ONE Administration - Re-Assessments/Exams Free Text/Narrative Re-Assessment/Exam: 08/17/17 17:12 cat scan was neg for acute findings. He is not complaining of other injuries. 08/17/17 18:35 as he was being discharged he spiked a temp to nearlly 103. He had blood cultures drawn and he had a chest xray. He looked like he could have a infiltrate at the left lung base. He will have a lateral chest. Because of the fever and the fact he is immunosuppresed he will need to be admitted. His ua is clear. Departure - Departure Time of Disposition: 17:13 Disposition: Admitted As Inpatient 65 Condition: Fair Clinical Impression: Contusion of forehead, Fever - Discharge Information Instructions: Contusion, [id number] Referrals: PCP,None [Primary Care Provider] - Forms: ED Department Discharge Care Plan Goals: admit to Dr bianchi. - My Orders Last 24 Hours: My Active Orders 08/17/17 15:53 Head wo Cont [CT] Stat 08/17/17 16:10 CULTURE BLOOD [BC] Urgent 08/17/17 16:38 UA W/MICROSCOPIC [URIN] Urgent 08/17/17 17:32 Chest 1V Frontal [CR] Stat 08/17/17 17:37 Blood Culture x2 Reflex Set [OM.PC] Urgent 08/17/17 17:41 CULTURE URINE [RM] Stat 08/17/17 17:48 CULTURE BLOOD [BC] Urgent 08/17/17 18:24 LACTIC ACID [CHEM] Stat 08/17/17 18:28 Chest 2V [CR] Stat - Assessment/Plan Last 24 Hours: My Active Orders 08/17/17 15:53 Head wo Cont [CT] Stat 08/17/17 16:10 CULTURE BLOOD [BC] Urgent 08/17/17 16:38 UA W/MICROSCOPIC [URIN] Urgent 08/17/17 17:32 Chest 1V Frontal [CR] Stat 08/17/17 17:37 Blood Culture x2 Reflex Set [OM.PC] Urgent 08/17/17 17:41 CULTURE URINE [RM] Stat 08/17/17 17:48 CULTURE BLOOD [BC] Urgent 08/17/17 18:24 LACTIC ACID [CHEM] Stat 08/17/17 18:28 Chest 2V [CR] Stat
[2017-08-17] MEDS ORDERED: Acetaminophen 325 MG Tab PO ONE (18:22)
[2017-08-17] MEDS ORDERED: Sodium Chloride 0.9% 1,000 ML IV SCH ×2 (18:45→20:15)
[2017-08-17] MEDS ORDERED: Iopamidol 612 MG/ML 100 ML Bottle IV PRN (20:07)
--- NOTE | 2017-08-17 20:13 | PCM.HP ---
H&P History of Present Illness - General Date of Service: 08/17/17 Admit Problem/Dx: Admission Diagnosis/Problem Admission Diagnosis/Problem Fever Source of Information: Patient, Family, Old Records, Provider, RN Notes Reviewed History Limitations: Reports: No Limitations - History of Present Illness Initial Comments - Free Text/Narative: Mr. Tavarez is a 72-year-old gentleman who is admitted through the emergency department with a febrile illness and weakness. Earlier today noted a sensation of feeling chilled, shortly thereafter he tripped and fell hitting his head and had a severe headache. He presented to the emergency department for further evaluation, CT scan of the head showed no acute abnormalities. He was ready for discharge when staff noted that he had a temperature elevation of 102F. Review of labs show an elevation in white blood cell count at 16,000. He has a known history of pancreatic cancer and has been receiving chemotherapy every 2 weeks. He spent much of June in the hospital, first with cholecystitis and sepsis and underwent an open cholecystectomy. He was home only a short period of time when he developed bleeding which was determined to be secondary to erosion of the cancer into an intra-abdominal blood vessel. He was hospitalized again and underwent coiling of the artery causing the bleeding. Shortly after discharge from the second hospitalization developed fever and again was transferred to [facility] in [place], it was determined that he had cholangitis and was treated with IV antibiotic therapy. He was discharged from last hospitalization approximately one month ago and is slowly regaining strength since that time. Chest x-ray obtained in the emergency department shows evidence of possible infiltrate at the left base. He denies significant respiratory symptoms and has had no nausea vomiting or other abdominal symptoms. Right Eye Pain Score (Numeric/FACES): 6 - Related Data Allergies/Adverse Reactions: Allergies Allergy/AdvReac Type Severity Reaction Status Date / Time Influenza Virus Vaccines Allergy Severe Respiratory Verified 06/19/17 07:01 Distress Penicillins Allergy Severe Swelling Verified 06/19/17 07:01 Home Medications: Home Meds glipiZIDE [Glucotrol XL] 5 mg PO BID 06/16/14 [History] Prochlorperazine Maleate [Compazine] 1 tab PO Q6H PRN 06/19/17 [History] Docusate Sodium 100 mg PO ASDIRECTED 07/22/17 [History] Escitalopram [Lexapro] 10 mg PO DAILY 07/22/17 [History] Magnesium 400 mg PO DAILY 07/22/17 [History] Ondansetron [Zofran ODT] 4 mg PO ASDIRECTED 07/22/17 [History] Tamsulosin HCl 0.4 mg PO DAILY 07/22/17 [History] Omeprazole Magnesium [Prilosec Otc] 20 mg PO DAILY 08/17/17 [History] Past Medical History HEENT History: Reports: Hard of Hearing Other Respiratory History: 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[place] [place] [facility] of DNA Other Hematologic History: hypercalcemia- familial Immunologic History: Reports: Immunosuppression Oncologic (Cancer) History: Reports: Pancreatic Other Dermatologic History: 2 month history of left hand bumps - Past Surgical History HEENT Surgical History: Reports: Other (See Below) Other HEENT Surgeries/Procedures: both side staminectomy Other Cardiovascular Surgeries/Procedures: negative stress test, quit breathin after flu shot Respiratory Surgical History: Reports: Other (See Below) Other Respiratory Surgeries/Procedures: bronchoscopy GI Surgical History: Reports: Other (See Below) Other GI Surgeries/Procedures: exp lap, 2 stents in pancreas Musculoskeletal Surgical History: Reports: Other (See Below) Other Musculoskeletal Surgeries/Procedures:: arm surgery plate and ligment repair Social & Family History - Tobacco Use Smoking Status *Q: Unknown Ever Smoked Years of Tobacco use: 5 Packs/Tins Daily: 0.5 Used Tobacco, but Quit: Yes Month/Year Tobacco Last Used: 1978 Second Hand Smoke Exposure: Yes - Caffeine Use Caffeine Use: Reports: Coffee - Alcohol Use Days Per Week of Alcohol Use: 0 - Recreational Drug Use Recreational Drug Use: No Drug Use in Last 12 Months: No Recreational Drug Use Frequency: Not Used In Over 6 Months - Living Situation & Occupation Living situation: Reports: Occupation: Retired H&P Review of Systems - Review of Systems: Review Of Systems: See Below General: Reports: Fever, Chills, Weakness HEENT: Reports: No Symptoms Pulmonary: Reports: No Symptoms Cardiovascular: Reports: No Symptoms Gastrointestinal: Reports: No Symptoms Genitourinary: Reports: No Symptoms Musculoskeletal: Reports: No Symptoms Skin: Reports: No Symptoms Psychiatric: Reports: No Symptoms Neurological: Reports: No Symptoms Hematologic/Lymphatic: Reports: No Symptoms Immunologic: Reports: No Symptoms Exam - Exam Exam: See Below - Vital Signs Vital Signs: Last Vital Signs Temp 99.3 F 08/17/17 19:53 Pulse 94 08/17/17 19:53 Resp 18 08/17/17 19:53 BP 142/67 H 08/17/17 19:53 Pulse Ox 93 L 08/17/17 19:53 Weight: 169 lb - Exam Quality Assessment: Central Line/PICC, DVT Prophylaxis General: Alert, Oriented, Cooperative, Mild Distress HEENT: Conjunctiva Clear, Hearing Intact, Normal Nasal Septum, Posterior Pharynx Clear, Pupils Equal. No: Mucosa Moist & [place] Neck: Supple, Trachea Midline, +2 Carotid Pulse wo Bruit Lungs: Clear to Auscultation, Normal Respiratory Effort Cardiovascular: Regular Rate, Regular Rhythm, Normal S1, Normal S2. No: Systolic Murmur, Diastolic Murmur GI/Abdominal Exam: Soft, Non-Tender, No Organomegaly, No Distention Back Exam: Normal Inspection, Full Range of Motion Extremities: Non-Tender, No Pedal Edema Skin: Warm, Dry, Intact Neurological: Cranial Nerves Intact, Strength Equal Bilateral, Normal Speech, Normal Tone, Sensation Intact. No: Focal Deficit Neuro Extensive - Mental Status: Alert, Oriented x3, Normal Mood/Affect, Normal Cognition, Memory Intact - Patient Data Lab Results Last 24 hrs: Laboratory Results - last 24 hr 08/17/17 08/17/17 08/17/17 Range/Units 16:10 16:10 16:10 WBC 16.3 H (4.5-11.0) K/uL RBC 3.92 L (4.30-5.90) M/uL Hgb 11.6 L (12.0-15.0) g/dL Hct 34.9 L (40.0-54.0) % MCV 89 (80-98) fL MCH 30 (27-31) pg MCHC 33 (32-36) % Plt Count 284 (150-400) K/uL Neut % (Auto) 81 H (36-66) % Lymph % (Auto) 10 L (24-44) % [place] % (Auto) 10 H (2-6) % Eos % (Auto) 0 L (2-4) % Baso % (Auto) 0 (0-1) % Sodium 135 L (140-148) mmol/L Potassium 3.7 (3.6-5.2) mmol/L Chloride 100 (100-108) mmol/L Carbon Dioxide 23 (21-32) mmol/L Anion Gap 15.7 H (5.0-14.0) mmol/L BUN 12 (7-18) mg/dL Creatinine 0.7 L (0.8-1.3) mg/dL Est Cr Clr Drug Dosing 93.99 mL/min Estimated GFR (MDRD) > 60 (>60) Glucose 158 H (74-106) mg/dL Lactic Acid (0.4-2.0) mmol/L Calcium 9.4 (8.5-10.1) mg/dL Total Bilirubin 2.5 H (0.2-1.0) mg/dL AST 95 H (15-37) U/L ALT 141 H (12-78) U/L Alkaline Phosphatase 1125 H (46-116) U/L Total Protein 6.5 (6.4-8.2) g/dL Albumin 2.6 L (3.4-5.0) g/dL Globulin 3.9 H (2.3-3.5) g/dL Albumin/Globulin Ratio 0.7 L (1.2-2.2) Amylase 18 L (25-115) U/L Lipase 62 L (73-393) U/L Urine Color Urine Appearance Urine pH (4.5-8.0) Ur Specific [place] (1.008-1.030) Urine Protein (NEGATIVE) mg/dL Urine Glucose (UA) (NEGATIVE) mg/dL Urine Ketones (NEGATIVE) mg/dL Urine Occult Blood (NEGATIVE) Urine Nitrite (NEGAITVE) Urine Bilirubin (NEGATIVE) Urine Urobilinogen (NORMAL) mg/dL Ur Leukocyte Esterase (NEGATIVE) Urine RBC (0-5) Urine WBC (0-5) Ur Epithelial Cells Amorphous Sediment Urine Bacteria Urine Mucus 08/17/17 08/17/17 Range/Units 16:38 18:27 WBC (4.5-11.0) K/uL RBC (4.30-5.90) M/uL Hgb (12.0-15.0) g/dL Hct (40.0-54.0) % MCV (80-98) fL MCH (27-31) pg MCHC (32-36) % Plt Count (150-400) K/uL Neut % (Auto) (36-66) % Lymph % (Auto) (24-44) % [place] % (Auto) (2-6) % Eos % (Auto) (2-4) % Baso % (Auto) (0-1) % Sodium (140-148) mmol/L Potassium (3.6-5.2) mmol/L Chloride (100-108) mmol/L Carbon Dioxide (21-32) mmol/L Anion Gap (5.0-14.0) mmol/L BUN (7-18) mg/dL Creatinine (0.8-1.3) mg/dL Est Cr Clr Drug Dosing mL/min Estimated GFR (MDRD) (>60) Glucose (74-106) mg/dL Lactic Acid 1.6 (0.4-2.0) mmol/L Calcium (8.5-10.1) mg/dL Total Bilirubin (0.2-1.0) mg/dL AST (15-37) U/L ALT (12-78) U/L Alkaline Phosphatase (46-116) U/L Total Protein (6.4-8.2) g/dL Albumin (3.4-5.0) g/dL Globulin (2.3-3.5) g/dL Albumin/Globulin Ratio (1.2-2.2) Amylase (25-115) U/L Lipase (73-393) U/L Urine Color [place] Urine Appearance Slightly cloudy Urine pH 5.0 (4.5-8.0) Ur Specific [place] 1.020 (1.008-1.030) Urine Protein Negative (NEGATIVE) mg/dL Urine Glucose (UA) Normal (NEGATIVE) mg/dL Urine Ketones 15 H (NEGATIVE) mg/dL Urine Occult Blood Negative (NEGATIVE) Urine Nitrite Negative (NEGAITVE) Urine Bilirubin Small (NEGATIVE) Urine Urobilinogen 8 (NORMAL) mg/dL Ur Leukocyte Esterase Negative (NEGATIVE) Urine RBC 0-5 (0-5) Urine WBC 0-5 (0-5) Ur Epithelial Cells Few Amorphous Sediment Few Urine Bacteria Not seen Urine Mucus Not seen Result Diagrams: 08/17/17 16:10 08/17/17 16:10 *Q Meaningful Use (ADM) - VTE Risk Assess *Q Each Risk Factor Represents 1 Point: None Total Score 1 Point Risk Factors: 0 Each Risk Factor Represents 2 Points: Age 60 - 74 Years, Malignancy (present or previous) Total Score 2 Point Risk Factors: 4 Each Risk Factor Represents 3 Points: None Total Score 3 Point Risk Factors: 0 Each Risk Factor Represents 5 Points: None Total Score 5 Point Risk Factors: 0 Venous Thromboembolism Risk Factor Score *Q: 4 Problem List Initiated/Reviewed/Updated: Yes Orders Last 24hrs: Active Orders 24 hr Category Date Time Status Patient Status Manage Transfer [TRANSFER] Routine ADT 08/17/17 20:03 Ordered Chest 1V Frontal [CR] Stat Exams 08/17/17 17:32 Taken Chest 2V [CR] Stat Exams 08/17/17 18:28 Taken Chest Abdomen Pelvis w Cont [CT] Stat Exams 08/17/17 19:50 Ordered Head wo Cont [CT] Stat Exams 08/17/17 15:53 Taken CULTURE BLOOD [BC] Urgent Lab 08/17/17 16:10 Received CULTURE BLOOD [BC] Urgent Lab 08/17/17 17:48 Received CULTURE URINE [RM] Stat Lab 08/17/17 17:41 Received UA W/MICROSCOPIC [URIN] Urgent Lab 08/17/17 16:38 Ordered Iopamidol [Isovue-300 (61%)] Med 08/17/17 20:07 Ordered 100 ml IV . DIRECTED PRN Sodium Chloride 0.9% [Normal Saline] 1,000 ml Med 08/17/17 18:45 Active IV ASDIRECTED Sodium Chloride 0.9% [Normal Saline] 80 ml Med 08/17/17 20:15 Ordered IV ASDIRECTED Blood Culture x2 Reflex Set [OM.PC] Urgent Oth 08/17/17 17:37 Ordered Resuscitation Status Routine Resus Stat 08/17/17 20:07 Ordered Medication Orders Sodium Chloride (Normal Saline) 1,000 mls @ 500 mls/hr IV ASDIRECTED DEMETRIUS Last Admin: 08/17/17 18:48 Dose: 500 mls/hr Sodium Chloride (Normal Saline) 80 mls @ 3 mls/sec IV ASDIRECTED [facility] Iopamidol (Isovue-300 (61%)) 100 ml IV . DIRECTED PRN PRN Reason: RADIOLOGY EXAM Stop: 08/18/17 20:08 Assessment/Plan Comment:: ASSESSMENT AND PLAN PROBABLE CHOLANGITIS-likely cause of current fever and white blood cell count elevation. CT scan of the chest abdomen and pelvis shows no evidence of pulmonary infiltrate or other source of infection. Dilatation of the biliary tract with stents in place and mass at the head of the pancreas. No other obvious source of infection has been identified on evaluation. -IV fluids for hydration -IV meropenem -Blood cultures pending PANCREATIC CARCINOMA-receiving regular chemotherapy, they are considering Whipple procedure if he remains stable. Currently has had good response to current chemotherapeutic regimen. -He is scheduled for a biopsy of the liver later this week at the [facility] BILIARY OBSTRUCTION-secondary to pancreatic mass. Significant improvement in liver studies with chemotherapy and decreased size of the tumor -Follow-up labs in a.m. TYPE 2 DIABETES MELLITUS -Hold glipizide -4 times a day glucometers -Low-dose sliding scale NovoLog MAINTENANCE ISSUES -DVT prophylaxis; Lovenox 40 mg subcutaneous daily -GI prophylaxis; continue outpatient PPI therapy -Nina catheter; not indicated -Nutrition; regular diet -Nicotine dependence; not required CODE STATUS-FULL CODE ADMISSION STATUS-patient will be admitted to inpatient status, expect at least a 2 night hospital stay for evaluation and management of problems as outlined above. At the time of this admission I do not reasonably expected evaluation and management of this problem will require more than a 96 hour hospital stay. DISPOSITION-anticipate discharge to home after the hospital stay. PRIMARY CARE PROVIDER-Dr. Slaughter
[2017-08-17] MEDS ORDERED: 50% Dextrose in Water 50 ML Syringe IV PRN (20:15)
[2017-08-17] MEDS ORDERED: Docusate Sodium 100 MG Cap PO PRN (20:15)
[2017-08-17] MEDS ORDERED: Enoxaparin 40 MG/0.4 ML Syringe SUBCUT SCH (20:15)
[2017-08-17] MEDS ORDERED: Acetaminophen 325 MG Tab PO PRN (20:15)
[2017-08-17] MEDS ORDERED: Glucose Gel 15 GM in 37.5 GM Tube PO PRN (20:15)
[2017-08-17] MEDS ORDERED: Sodium Chloride 0.9% 10 ML Syringe FLUSH PRN (20:15)
[2017-08-17] MEDS ORDERED: Sodium Chloride 0.9% 80 ML IV SCH (20:15)
[2017-08-17] MEDS ORDERED: Magnesium Hydroxide 400 MG/5 ML Susp 30 ML Cup PO PRN (20:15)
[2017-08-17] MEDS ORDERED: oxyCODONE 5 MG Tab PO PRN (20:15)
[2017-08-17] MEDS ORDERED: Ondansetron 4 MG/2 ML SDV IV PRN (20:15)
[2017-08-17] MEDS ORDERED: Polyethylene Glycol 3350 Powder 17 GM Packet PO PRN (20:15)
[2017-08-17] MEDS ORDERED: Levofloxacin/Dextrose 5%-Water 750 MG in Premix Bag 1 BAG IV SCH (22:00)
[2017-08-18] MEDS: Magnesium Oxide 400 MG Tab PO SCH (08:32)
[2017-08-18] MEDS: Tamsulosin 0.4 MG Cap.ER PO SCH (08:32)
[2017-08-18] MEDS: Escitalopram 10 MG Tab PO SCH (08:32)
[2017-08-18] MEDS: Pantoprazole 40 MG Tab.CR PO SCH (08:32)
[2017-08-18] MEDS: Insulin Aspart 100 Units/ML 3 ML Pen SUBCUT SCH ×3 (08:38→20:00)
[2017-08-18] MEDS ORDERED: Non-Formulary Medication 1 Each (Magnesium [Magnesium] 400 MG) PO SCH (09:00)
[2017-08-18] MEDS ORDERED: Non-Formulary Medication 1 Each (Omeprazole Magnesium [Prilosec Otc] 20 MG) PO SCH (09:00)
--- NOTE | 2017-08-18 10:00 | CR ---
Chest 2V INDICATION: Do a left lateral only. COMPARISON: 06/19/2017 FINDINGS: Two views. Right IJ central line remains in place in good position. Small infiltrate or atelectasis left lung base. Right lung clear. No pleural effusion. Heart size normal.
--- NOTE | 2017-08-18 12:59 | PCM.PN ---
- General Info Date of Service: 08/18/17 Functional Status: Reports: Pain Controlled, Tolerating Diet - Review of Systems General: Denies: Fever Gastrointestinal: Denies: Abdominal Pain Systems Review Comment:: No acute events since admission. No fevers overnight. No abdominal pain or nausea. Tolerating his diet well. No cough or shortness of breath. White blood cell count trending down. Cultures negative so far. - Patient Data Vitals - Most Recent: Last Vital Signs Temp 36.2 C 08/18/17 12:41 Pulse 79 08/18/17 12:41 Resp 12 08/18/17 12:41 BP 110/53 L 08/18/17 12:41 Pulse Ox 98 08/18/17 12:41 Weight - Most Recent: 78.3 kg I&O - Last 24 Hours: Intake & Output 08/17/17 08/18/17 08/18/17 22:59 06:59 14:59 Intake Total 320 773 Output Total 400 900 250 Balance -80 -127 -250 Lab Results Last 24 Hours: Laboratory Results - last 24 hr 08/17/17 08/17/17 08/17/17 Range/Units 16:10 16:10 16:10 WBC 16.3 H (4.5-11.0) K/uL RBC 3.92 L (4.30-5.90) M/uL Hgb 11.6 L (12.0-15.0) g/dL Hct 34.9 L (40.0-54.0) % MCV 89 (80-98) fL MCH 30 (27-31) pg MCHC 33 (32-36) % Plt Count 284 (150-400) K/uL Neut % (Auto) 81 H (36-66) % Lymph % (Auto) 10 L (24-44) % [place] % (Auto) 10 H (2-6) % Eos % (Auto) 0 L (2-4) % Baso % (Auto) 0 (0-1) % Sodium 135 L (140-148) mmol/L Potassium 3.7 (3.6-5.2) mmol/L Chloride 100 (100-108) mmol/L Carbon Dioxide 23 (21-32) mmol/L Anion Gap 15.7 H (5.0-14.0) mmol/L BUN 12 (7-18) mg/dL Creatinine 0.7 L (0.8-1.3) mg/dL Est Cr Clr Drug Dosing 93.99 mL/min Estimated GFR (MDRD) > 60 (>60) Glucose 158 H (74-106) mg/dL Lactic Acid (0.4-2.0) mmol/L Calcium 9.4 (8.5-10.1) mg/dL Magnesium (1.8-2.4) mg/dL Total Bilirubin 2.5 H (0.2-1.0) mg/dL AST 95 H (15-37) U/L ALT 141 H (12-78) U/L Alkaline Phosphatase 1125 H (46-116) U/L Total Protein 6.5 (6.4-8.2) g/dL Albumin 2.6 L (3.4-5.0) g/dL Globulin 3.9 H (2.3-3.5) g/dL Albumin/Globulin Ratio 0.7 L (1.2-2.2) Amylase 18 L (25-115) U/L Lipase 62 L (73-393) U/L Urine Color Urine Appearance Urine pH (4.5-8.0) Ur Specific [place] (1.008-1.030) Urine Protein (NEGATIVE) mg/dL Urine Glucose (UA) (NEGATIVE) mg/dL Urine Ketones (NEGATIVE) mg/dL Urine Occult Blood (NEGATIVE) Urine Nitrite (NEGAITVE) Urine Bilirubin (NEGATIVE) Urine Urobilinogen (NORMAL) mg/dL Ur Leukocyte Esterase (NEGATIVE) Urine RBC (0-5) Urine WBC (0-5) Ur Epithelial Cells Amorphous Sediment Urine Bacteria Urine Mucus 08/17/17 08/17/17 08/18/17 Range/Units 16:38 18:27 05:55 WBC 11.7 H (4.5-11.0) K/uL RBC 3.69 L (4.30-5.90) M/uL Hgb 10.8 L (12.0-15.0) g/dL Hct 32.9 L (40.0-54.0) % MCV 89 (80-98) fL MCH 29 (27-31) pg MCHC 33 (32-36) % Plt Count 266 (150-400) K/uL Neut % (Auto) 57 (36-66) % Lymph % (Auto) 27 (24-44) % [place] % (Auto) 16 H (2-6) % Eos % (Auto) 1 L (2-4) % Baso % (Auto) 0 (0-1) % Sodium (140-148) mmol/L Potassium (3.6-5.2) mmol/L Chloride (100-108) mmol/L Carbon Dioxide (21-32) mmol/L Anion Gap (5.0-14.0) mmol/L BUN (7-18) mg/dL Creatinine (0.8-1.3) mg/dL Est Cr Clr Drug Dosing mL/min Estimated GFR (MDRD) (>60) Glucose (74-106) mg/dL Lactic Acid 1.6 (0.4-2.0) mmol/L Calcium (8.5-10.1) mg/dL Magnesium (1.8-2.4) mg/dL Total Bilirubin (0.2-1.0) mg/dL AST (15-37) U/L ALT (12-78) U/L Alkaline Phosphatase (46-116) U/L Total Protein (6.4-8.2) g/dL Albumin (3.4-5.0) g/dL Globulin (2.3-3.5) g/dL Albumin/Globulin Ratio (1.2-2.2) Amylase (25-115) U/L Lipase (73-393) U/L Urine Color [place] Urine Appearance Slightly cloudy Urine pH 5.0 (4.5-8.0) Ur Specific [place] 1.020 (1.008-1.030) Urine Protein Negative (NEGATIVE) mg/dL Urine Glucose (UA) Normal (NEGATIVE) mg/dL Urine Ketones 15 H (NEGATIVE) mg/dL Urine Occult Blood Negative (NEGATIVE) Urine Nitrite Negative (NEGAITVE) Urine Bilirubin Small (NEGATIVE) Urine Urobilinogen 8 (NORMAL) mg/dL Ur Leukocyte Esterase Negative (NEGATIVE) Urine RBC 0-5 (0-5) Urine WBC 0-5 (0-5) Ur Epithelial Cells Few Amorphous Sediment Few Urine Bacteria Not seen Urine Mucus Not seen 08/18/17 Range/Units 05:55 WBC (4.5-11.0) K/uL RBC (4.30-5.90) M/uL Hgb (12.0-15.0) g/dL Hct (40.0-54.0) % MCV (80-98) fL MCH (27-31) pg MCHC (32-36) % Plt Count (150-400) K/uL Neut % (Auto) (36-66) % Lymph % (Auto) (24-44) % [place] % (Auto) (2-6) % Eos % (Auto) (2-4) % Baso % (Auto) (0-1) % Sodium 138 L (140-148) mmol/L Potassium 3.4 L (3.6-5.2) mmol/L Chloride 104 (100-108) mmol/L Carbon Dioxide 25 (21-32) mmol/L Anion Gap 12.4 (5.0-14.0) mmol/L BUN 11 (7-18) mg/dL Creatinine 0.7 L (0.8-1.3) mg/dL Est Cr Clr Drug Dosing 97.04 mL/min Estimated GFR (MDRD) > 60 (>60) Glucose 87 (74-106) mg/dL Lactic Acid (0.4-2.0) mmol/L Calcium 8.7 (8.5-10.1) mg/dL Magnesium 1.7 L (1.8-2.4) mg/dL Total Bilirubin 1.8 H (0.2-1.0) mg/dL AST 64 H (15-37) U/L ALT 120 H (12-78) U/L Alkaline Phosphatase 931 H (46-116) U/L Total Protein 5.7 L (6.4-8.2) g/dL Albumin 2.0 L (3.4-5.0) g/dL Globulin 3.7 H (2.3-3.5) g/dL Albumin/Globulin Ratio 0.5 L (1.2-2.2) Amylase (25-115) U/L Lipase (73-393) U/L Urine Color Urine Appearance Urine pH (4.5-8.0) Ur Specific [place] (1.008-1.030) Urine Protein (NEGATIVE) mg/dL Urine Glucose (UA) (NEGATIVE) mg/dL Urine Ketones (NEGATIVE) mg/dL Urine Occult Blood (NEGATIVE) Urine Nitrite (NEGAITVE) Urine Bilirubin (NEGATIVE) Urine Urobilinogen (NORMAL) mg/dL Ur Leukocyte Esterase (NEGATIVE) Urine RBC (0-5) Urine WBC (0-5) Ur Epithelial Cells Amorphous Sediment Urine Bacteria Urine Mucus Med Orders - Current: Current Medications Acetaminophen (Tylenol) 650 mg PO Q4H PRN PRN Reason: Pain (Mild 1-3)/fever Dextrose (Glutose 15) 15 gm PO ONETIME PRN PRN Reason: Hypoglycemia Dextrose/Water (Dextrose 50% In Water) 50 ml IV ONETIME PRN PRN Reason: Hypoglycemia Docusate Sodium (Colace) 100 mg PO DAILY PRN PRN Reason: Constipation Enoxaparin Sodium (Lovenox) 40 mg SUBCUT BEDTIME [facility] Escitalopram Oxalate (Lexapro) 10 mg PO DAILY [facility] Last Admin: 08/18/17 08:32 Dose: 10 mg Meropenem 1 gm/ Sodium (Chloride) 100 mls @ 200 mls/hr IV Q8H [facility] Insulin Aspart (Novolog) 0 unit SUBCUT QIDACANDBED [facility]; Protocol Last Admin: 08/18/17 08:38 Dose: Not Given Magnesium Hydroxide (Milk Of Magnesia) 30 ml PO Q12H PRN PRN Reason: Constipation Magnesium Oxide (Magnesium Oxide) 400 mg PO DAILY [facility] Last Admin: 08/18/17 08:32 Dose: 400 mg Ondansetron HCl (Zofran) 4 mg IV Q4H PRN PRN Reason: Nausea/Vomiting Oxycodone HCl (Oxycodone) 5 mg PO Q4H PRN PRN Reason: Pain (moderate 4-6) Pantoprazole Sodium (Protonix) 40 mg PO ACBREAKFAST [facility] Last Admin: 08/18/17 08:32 Dose: 40 mg Polyethylene Glycol (Miralax) 17 gm PO DAILY PRN PRN Reason: Constipation Sodium Chloride (Saline Flush) 10 ml FLUSH ASDIRECTED PRN PRN Reason: Keep Vein Open Tamsulosin HCl (Flomax) 0.4 mg PO DAILY [facility] Last Admin: 08/18/17 08:32 Dose: 0.4 mg Discontinued Medications Acetaminophen (Tylenol) 650 mg PO NOW ONE Stop: 08/17/17 18:23 Last Admin: 08/17/17 18:35 Dose: 650 mg Hydrocodone Bitart/Acetaminophen ([place] 325-5 Mg) 1 tab PO ONETIME ONE Stop: 08/17/17 15:55 Last Admin: 08/17/17 16:45 Dose: 1 tab Enoxaparin Sodium (Lovenox) 40 mg SUBCUT DAILY [facility] Last Admin: 08/17/17 21:13 Dose: 40 mg Heparin Sodium (Porcine) (Heparin Lock Flush 100 Units/Ml) 500 units FLUSH ASDIRECTED ONE Stop: 08/17/17 17:19 Last Admin: 08/17/17 17:22 Dose: 500 units Sodium Chloride (Normal Saline) 1,000 mls @ 500 mls/hr IV ASDIRECTED [facility] Last Admin: 08/17/17 18:48 Dose: 500 mls/hr Sodium Chloride (Normal Saline) 80 mls @ 3 mls/sec IV ASDIRECTED [facility] Sodium Chloride (Normal Saline) 1,000 mls @ 125 mls/hr IV ASDIRECTED [facility] Last Admin: 08/17/17 21:13 Dose: 125 mls/hr Levofloxacin/Dextrose 750 mg/ (Premix) 150 mls @ 100 mls/hr IV Q24H [facility] Last Admin: 08/17/17 21:55 Dose: 100 mls/hr Meropenem 1 gm/ Sodium (Chloride) 50 mls @ 100 mls/hr IV Q8H [facility] Last Admin: 08/18/17 04:03 Dose: 100 mls/hr Iopamidol (Isovue-300 (61%)) 100 ml IV . DIRECTED PRN PRN Reason: RADIOLOGY EXAM Stop: 08/18/17 20:08 - Exam Quality Assessment: No: Supplemental Oxygen General: Alert, Oriented, Cooperative, No Acute Distress Neck: Supple Lungs: Normal Respiratory Effort GI/Abdominal Exam: Soft, No Distention Extremities: No Pedal Edema Psy/Mental Status: Alert, Normal Affect - Problem List Review Problem List Initiated/Reviewed/Updated: Yes - My Orders Last 24 Hours: My Active Orders 08/18/17 12:56 Convert IV to Saline Lock [OM.PC] Routine 08/19/17 05:00 CBC W/O DIFF,HEMOGRAM [HEME] Timed (1) COMPREHENSIVE METABOLIC PN,CMP [CHEM] Timed - Plan Plan:: ASSESSMENT AND PLAN PROBABLE ACUTE CHOLANGITIS - likely cause of current fever and white blood cell count elevation. CT C/A/P did not show definite acute pathology but patient does have a history of cholangitis and has a biliary stent in place. Clinically looking better since admission with white blood cell count trending down and no recurrence of fevers. -Saline lock IV -IV meropenem -Follow-up cultures -Repeat hepatic panel labs in the morning PANCREATIC CARCINOMA - receiving regular chemotherapy, they are considering Whipple procedure if he remains stable. Currently has had good response to current chemotherapeutic regimen. -He is scheduled for a biopsy of the liver tomorrow at the [facility] BILIARY OBSTRUCTION - secondary to pancreatic mass. Significant improvement in liver studies with chemotherapy and decreased size of the tumor -Follow-up labs in a.m. TYPE 2 DIABETES MELLITUS -Hold glipizide -4 times a day glucometers -Low-dose sliding scale [employer] MAINTENANCE ISSUES -DVT prophylaxis; enoxaparin -GI prophylaxis; continue outpatient PPI therapy -Nina catheter; not indicated -Nutrition; regular diet DISPOSITION - anticipate discharge to home after the hospital stay. Possibly tomorrow if stable overnight. Ace Whitman M.D.
[2017-08-18] MEDS: Meropenem 1 GM in Sodium Chloride 0.9% 100 ML IV SCH ×2 (13:18→20:00)
[2017-08-18] MEDS ORDERED: Enoxaparin 40 MG/0.4 ML Syringe SUBCUT SCH (21:00)
[2017-08-19] MEDS: Meropenem 1 GM in Sodium Chloride 0.9% 100 ML IV SCH (04:00)
[2017-08-19 07:34] VITALS: BP 103/66
[2017-08-19] MEDS: Insulin Aspart 100 Units/ML 3 ML Pen SUBCUT SCH (08:10)
[2017-08-19] MEDS: Magnesium Oxide 400 MG Tab PO SCH (08:12)
[2017-08-19] MEDS: Pantoprazole 40 MG Tab.CR PO SCH (08:12)
[2017-08-19] MEDS: Tamsulosin 0.4 MG Cap.ER PO SCH (08:12)
[2017-08-19] MEDS: Escitalopram 10 MG Tab PO SCH (08:12)
--- NOTE | 2017-08-19 10:15 | PCM.DCSUM1 ---
Discharge Summary - Hospital Course Brief History: 72-year-old male with history of pancreatic cancer and previous common bile duct stent to relieve obstruction as well as recent chemotherapy who presented to the emergency room after a fall with mild head trauma. Workup for the head trauma was negative but while he was in the emergency room he had a fever. He was admitted for management of suspected cholangitis. - Discharge Data Discharge Date: 08/19/17 Discharge Disposition: Home, Self-Care 01 Condition: Fair - Discharge Diagnosis/Problem(s) (1) Cholangitis, recurrent SNOMED Code(s): 33872064 ICD Code: K83.0 - CHOLANGITIS Status: Acute Current Visit: Yes (2) Contusion of forehead SNOMED Code(s): 401971457 ICD Code: S00.83XA - CONTUSION OF OTHER PART OF HEAD, INITIAL ENCOUNTER Status: Acute Current Visit: Yes Qualifiers: Encounter type: initial encounter Qualified Code(s): S00.83XA - Contusion of other part of head, initial encounter (3) Diabetes mellitus type 2, noninsulin dependent SNOMED Code(s): 13308102 ICD Code: E11.9 - TYPE 2 DIABETES MELLITUS WITHOUT COMPLICATIONS Status: Chronic Priority: High Current Visit: No (4) Pancreatic cancer SNOMED Code(s): 626697436 ICD Code: C25.9 - MALIGNANT NEOPLASM OF PANCREAS, UNSPECIFIED Status: Chronic Current Visit: No Qualifiers: Pancreatic malignancy location: unspecified Qualified Code(s): C25.9 - Malignant neoplasm of pancreas, unspecified - Patient Summary/Data Consults: Consultations 08/17/17 20:15 PT Evaluation and Treatment [CONS] Routine Please Evaluate and Treat. PT Reason for Consult: Weakness This query below is only for informational purposes and is not editable. Hospital Course: Baldemar presented to the emergency room after tripping and falling and striking his head at home. He had a head CT in the emergency room which did not show any acute pathology. Laboratory studies revealed mild leukocytosis as well as elevation of AST and ALT and significant elevation of the alkaline phosphatase. While he was in the emergency room he spiked a fever to 102. This prompted hospital admission and a CT scan of the chest, abdomen and pelvis. the CT scan did not show any acute findings and specifically did not show evidence for pneumonia, abscess formation or bowel obstruction. The biliary stent was visualized. He was empirically started on meropenem after cultures were obtained with the suspicion that he had a recurrent episode of cholangitis. Following hospital admission he had a quick resolution of his fever. He did not have any abdominal pain or nausea. The morning after admission his laboratory studies have all shown improvement with reduction in the AST and ALT as well as a decrease in his alkaline phosphatase. Clinically he remained stable and was feeling well. We left him on IV antibiotics for an additional day and there were no acute events throughout the day. On the morning of discharge she has had a further improvement in his laboratory studies with near normalization. He has not had any fevers. He does not have any gastrointestinal symptoms and general feels well. Cultures are all negative. The plan is for him to be discharged today. He will be traveling down to the [facility] for a liver biopsy tomorrow. He will be discharged with comminution antibiotic therapy including ciprofloxacin and metronidazole. - Patient Instructions Diet: Regular Diet as Tolerated Activity: As Tolerated Driving: May Drive Today Showering/Bathing: May Shower Notify Provider of: Fever, Increased Pain, Nausea and/or Vomiting Other/Special Instructions: 1. You were in the hospital for management of suspected cholangitis. You have not had any fevers and your laboratory studies and clinical examination have been improving after antibiotic therapy and IV fluid hydration. I do recommend ongoing antibiotic therapy with a combination of ciprofloxacin and metronidazole. You should take ciprofloxacin twice daily for 10 doses. Your first dose is due today when you product picker your prescription. You should also take metronidazole 3 times daily (only two doses today) for 14 doses. You should take the ciprofloxacin on an empty stomach and the metronidazole with food. 2. Continue your other medications as previously prescribed. 3. Please seek medical attention if you develop fever greater than 101, develop severe abdominal pain or if you have persistent vomiting. - Discharge Plan Prescriptions/Med Rec: Ciprofloxacin [IJD: Ciprofloxacin HCl] 500 mg PO BID #10 tab Metronidazole [IJD: metroNIDAZOLE] 500 mg PO TID #14 tab Home Medications: Home Meds glipiZIDE [Glucotrol XL] 5 mg PO BID 06/16/14 [History] Prochlorperazine Maleate [Compazine] 1 tab PO Q6H PRN 06/19/17 [History] Docusate Sodium 100 mg PO ASDIRECTED 07/22/17 [History] Escitalopram [Lexapro] 10 mg PO DAILY 07/22/17 [History] Magnesium 400 mg PO DAILY 07/22/17 [History] Ondansetron [Zofran ODT] 4 mg PO ASDIRECTED 07/22/17 [History] Tamsulosin HCl 0.4 mg PO DAILY 07/22/17 [History] Omeprazole Magnesium [Prilosec Otc] 20 mg PO DAILY 08/17/17 [History] Ciprofloxacin [IJD: Ciprofloxacin HCl] 500 mg PO BID #10 tab 08/19/17 [Rx] Metronidazole [IJD: metroNIDAZOLE] 500 mg PO TID #14 tab 08/19/17 [Rx] Patient Handouts: Contusion, [id number], Cholangitis, Ciprofloxacin tablets Referrals: PCP,None [Primary Care Provider] - (follow-up with your primary care as needed after the hospital stay) - Discharge Summary/Plan Comment DC Time >30 min.: No (25) - Patient Data Vitals - Most Recent: Last Vital Signs Temp 36.1 C 08/19/17 07:33 Pulse 93 08/19/17 07:33 Resp 16 08/19/17 07:33 BP 103/66 08/19/17 07:33 Pulse Ox 100 08/19/17 07:33 Weight - Most Recent: 78.3 kg I&O - Last 24 hours: Intake & Output 08/18/17 08/19/17 08/19/17 22:59 06:59 14:59 Intake Total 900 700 100 Balance 900 700 100 Lab Results - Last 24 hrs: Laboratory Results - last 24 hr 08/19/17 08/19/17 Range/Units 04:30 04:30 WBC 10.0 (4.5-11.0) K/uL RBC 3.86 L (4.30-5.90) M/uL Hgb 11.1 L (12.0-15.0) g/dL Hct 34.4 L (40.0-54.0) % MCV 89 (80-98) fL MCH 29 (27-31) pg MCHC 32 (32-36) % Plt Count 321 (150-400) K/uL Sodium 142 (140-148) mmol/L Potassium 3.7 (3.6-5.2) mmol/L Chloride 108 (100-108) mmol/L Carbon Dioxide 26 (21-32) mmol/L Anion Gap 8.4 (5.0-14.0) mmol/L BUN 8 (7-18) mg/dL Creatinine 0.7 L (0.8-1.3) mg/dL Est Cr Clr Drug Dosing 97.28 mL/min Estimated GFR (MDRD) > 60 (>60) Glucose 100 (74-106) mg/dL Calcium 9.0 (8.5-10.1) mg/dL Total Bilirubin 0.9 (0.2-1.0) mg/dL AST 32 (15-37) U/L ALT 95 H (12-78) U/L Alkaline Phosphatase 807 H (46-116) U/L Total Protein 5.7 L (6.4-8.2) g/dL Albumin 2.1 L (3.4-5.0) g/dL Globulin 3.6 H (2.3-3.5) g/dL Albumin/Globulin Ratio 0.6 L (1.2-2.2) QUIQUE Results - Last 24 hrs: Microbiology 08/17/17 17:41 Urine Culture - Preliminary Urine, Bladder MIXED POSITIVE YISSEL DAY 1 08/17/17 17:48 Aerobic Blood Culture - Preliminary Blood - Arm, Right NO GROWTH AFTER 1 DAY Anaerobic Blood Culture - Preliminary NO GROWTH AFTER 1 DAY 08/17/17 16:10 Aerobic Blood Culture - Preliminary Blood - Port-A-Cath NO GROWTH AFTER 1 DAY Anaerobic Blood Culture - Preliminary NO GROWTH AFTER 1 DAY Med Orders - Current: Current Medications Acetaminophen (Tylenol) 650 mg PO Q4H PRN PRN Reason: Pain (Mild 1-3)/fever Dextrose (Glutose 15) 15 gm PO ONETIME PRN PRN Reason: Hypoglycemia Dextrose/Water (Dextrose 50% In Water) 50 ml IV ONETIME PRN PRN Reason: Hypoglycemia Docusate Sodium (Colace) 100 mg PO DAILY PRN PRN Reason: Constipation Enoxaparin Sodium (Lovenox) 40 mg SUBCUT BEDTIME COUNTS INCLUDE 234 BEDS AT THE [facility] Escitalopram Oxalate (Lexapro) 10 mg PO DAILY COUNTS INCLUDE 234 BEDS AT THE [facility] Last Admin: 08/19/17 08:12 Dose: 10 mg Meropenem 1 gm/ Sodium (Chloride) 100 mls @ 200 mls/hr IV Q8H COUNTS INCLUDE 234 BEDS AT THE [facility] Last Admin: 08/18/17 13:18 Dose: 200 mls/hr Insulin Aspart (Novolog) 0 unit SUBCUT QIDACANDBED COUNTS INCLUDE 234 BEDS AT THE [facility]; Protocol Last Admin: 08/19/17 08:10 Dose: Not Given Magnesium Hydroxide (Milk Of Magnesia) 30 ml PO Q12H PRN PRN Reason: Constipation Magnesium Oxide (Magnesium Oxide) 400 mg PO DAILY COUNTS INCLUDE 234 BEDS AT THE [facility] Last Admin: 08/19/17 08:12 Dose: 400 mg Ondansetron HCl (Zofran) 4 mg IV Q4H PRN PRN Reason: Nausea/Vomiting Oxycodone HCl (Oxycodone) 5 mg PO Q4H PRN PRN Reason: Pain (moderate 4-6) Pantoprazole Sodium (Protonix) 40 mg PO ACBREAKFAST COUNTS INCLUDE 234 BEDS AT THE [facility] Last Admin: 08/19/17 08:12 Dose: 40 mg Polyethylene Glycol (Miralax) 17 gm PO DAILY PRN PRN Reason: Constipation Sodium Chloride (Saline Flush) 10 ml FLUSH ASDIRECTED PRN PRN Reason: Keep Vein Open Tamsulosin HCl (Flomax) 0.4 mg PO DAILY COUNTS INCLUDE 234 BEDS AT THE [facility] Last Admin: 08/19/17 08:12 Dose: 0.4 mg Discontinued Medications Acetaminophen (Tylenol) 650 mg PO NOW ONE Stop: 08/17/17 18:23 Last Admin: 08/17/17 18:35 Dose: 650 mg Hydrocodone Bitart/Acetaminophen ([place] 325-5 Mg) 1 tab PO ONETIME ONE Stop: 08/17/17 15:55 Last Admin: 08/17/17 16:45 Dose: 1 tab Enoxaparin Sodium (Lovenox) 40 mg SUBCUT DAILY COUNTS INCLUDE 234 BEDS AT THE [facility] Last Admin: 08/17/17 21:13 Dose: 40 mg Heparin Sodium (Porcine) (Heparin Lock Flush 100 Units/Ml) 500 units FLUSH ASDIRECTED ONE Stop: 08/17/17 17:19 Last Admin: 08/17/17 17:22 Dose: 500 units Sodium Chloride (Normal Saline) 1,000 mls @ 500 mls/hr IV ASDIRECTED COUNTS INCLUDE 234 BEDS AT THE [facility] Last Admin: 08/17/17 18:48 Dose: 500 mls/hr Sodium Chloride (Normal Saline) 80 mls @ 3 mls/sec IV ASDIRECTED COUNTS INCLUDE 234 BEDS AT THE [facility] Sodium Chloride (Normal Saline) 1,000 mls @ 125 mls/hr IV ASDIRECTED COUNTS INCLUDE 234 BEDS AT THE [facility] Last Admin: 08/17/17 21:13 Dose: 125 mls/hr Levofloxacin/Dextrose 750 mg/ (Premix) 150 mls @ 100 mls/hr IV Q24H COUNTS INCLUDE 234 BEDS AT THE [facility] Last Admin: 08/17/17 21:55 Dose: 100 mls/hr Meropenem 1 gm/ Sodium (Chloride) 50 mls @ 100 mls/hr IV Q8H COUNTS INCLUDE 234 BEDS AT THE [facility] Last Admin: 08/18/17 04:03 Dose: 100 mls/hr Iopamidol (Isovue-300 (61%)) 100 ml IV . DIRECTED PRN PRN Reason: RADIOLOGY EXAM Stop: 08/18/17 20:08 - Exam Quality Assessment: Denies: Supplemental Oxygen General: Reports: Alert, Oriented, Cooperative, No Acute Distress Lungs: Reports: Normal Respiratory Effort GI/Abdominal Exam: Soft, No Distention Extremities: No Pedal Edema Psy/Mental Status: Reports: Alert, Normal Affect
== END 2017-08-19 11:20 | disposition home or self-care (01) | DRG 445 ==
LOC: JP.ED 15:13 → JP.MS 20:03
PROVIDERS: ADMIT Hospitalist; ATTEND Internal Medicine
DX: K83.0 Cholangitis (principal); C25.9 Malignant neoplasm of pancreas, unspecified; F10.21 Alcohol dependence, in remission; S00.83XA Contusion of other part of head, initial encounter; E11.9 Type 2 diabetes mellitus without complications; R50.9 Fever, unspecified; Z87.891 Personal history of nicotine dependence; W01.0XXA Fall on same level from slipping, tripping and stumbling without subsequent striking against object, initial encounter; Y92.009 Unspecified place in unspecified non-institutional (private) residence as the place of occurrence of the external cause; K21.9 Gastro-esophageal reflux disease without esophagitis; H91.90 Unspecified hearing loss, unspecified ear; Z92.21 Personal history of antineoplastic chemotherapy; Z88.0 Allergy status to penicillin; Z88.7 Allergy status to serum and vaccine; Z79.84 Long term (current) use of oral hypoglycemic drugs
CPT/HCPCS: 36415; 70450; 71046 ×2; 80053; 81001; 82150; 83605; 83690; 85025; 87040 ×2; 87086; 96360; 99285; A9270 ×2; C1751 ×2; J1642; J7040; 71045; 71260; 74177; 82962; 83735; 85027; 97162-GP; J1650; J1956; J2185; J7030; J7050

== ENCOUNTER 2017-08-25 20:02 | Emergency (ER) | payer MEDICARE ==
[2017-08-25] MEDS ORDERED: Ondansetron 4 MG Tab.DIS PO ONE (21:10)
--- NOTE | 2017-08-25 21:13 | EDM.PDOC ---
ED HPI GENERAL MEDICAL PROBLEM - General Chief Complaint: Gastrointestinal Problem Stated Complaint: VOMITING Time Seen by Provider: 08/25/17 21:00 Source of Information: Reports: Patient, Family History Limitations: Reports: No Limitations - History of Present Illness INITIAL COMMENTS - FREE TEXT/NARRATIVE: 72-year-old male with pancreatic cancer, is due to start his next round of chemotherapy tomorrow but developed nausea tonight, in the emesis it looked "pink" and they were concerned there may be some blood. No fevers or chills. No unusual pain. Onset: Gradual Severity: Moderate Associated Symptoms: Reports: Malaise, Nausea/Vomiting. Denies: Chest Pain, Fever/Chills, Shortness of Breath - Related Data Allergies Allergy/AdvReac Type Severity Reaction Status Date / Time Influenza Virus Vaccines Allergy Severe Respiratory Verified 08/25/17 20:34 Distress Penicillins Allergy Severe Swelling Verified 08/25/17 20:34 Home Meds: Home Meds glipiZIDE [Glucotrol XL] 5 mg PO BID 06/16/14 [History] Prochlorperazine Maleate [Compazine] 1 tab PO Q6H PRN 06/19/17 [History] Docusate Sodium 100 mg PO ASDIRECTED PRN 07/22/17 [History] Escitalopram [Lexapro] 10 mg PO DAILY 07/22/17 [History] Magnesium 400 mg PO DAILY 07/22/17 [History] Ondansetron [Zofran ODT] 4 mg PO ASDIRECTED PRN 07/22/17 [History] Tamsulosin HCl 0.4 mg PO DAILY PRN 07/22/17 [History] Omeprazole Magnesium [Prilosec Otc] 20 mg PO DAILY 08/17/17 [History] Past Medical History HEENT History: Reports: Hard of Hearing Cardiovascular History: Reports: None Other Respiratory History: 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[place]- [place] [facility] of DNA Other Hematologic History: hypercalcemia- familial Immunologic History: Reports: Immunosuppression Oncologic (Cancer) History: Reports: Pancreatic Other Dermatologic History: 2 month history of left hand bumps - Infectious Disease History Infectious Disease History: Reports: Chicken Pox, Influenza - Past Surgical History HEENT Surgical History: Reports: Other (See Below) Other HEENT Surgeries/Procedures: both side staminectomy Other Cardiovascular Surgeries/Procedures: negative stress test, quit breathin after flu shot Respiratory Surgical History: Reports: Other (See Below) Other Respiratory Surgeries/Procedures: bronchoscopy GI Surgical History: Reports: Other (See Below) Other GI Surgeries/Procedures: exp lap, 2 stents in pancreas Musculoskeletal Surgical History: Reports: Other (See Below) Other Musculoskeletal Surgeries/Procedures:: arm surgery plate and ligment repair Social & Family History - Family History Family Medical History: Noncontributory - Tobacco Use Smoking Status *Q: Never Smoker - Caffeine Use Caffeine Use: Reports: Coffee - Recreational Drug Use Recreational Drug Use: No - Living Situation & Occupation Living situation: Reports: Occupation: Retired ED ROS GENERAL - Review of Systems Review Of Systems: See Below Constitutional: Reports: Malaise, Weakness. Denies: Fever, Chills HEENT: Denies: Vision Change Respiratory: Denies: Shortness of Breath, Cough Cardiovascular: Denies: Chest Pain GI/Abdominal: Reports: Nausea, Vomiting. Denies: Abdominal Pain, Diarrhea : Reports: No Symptoms Skin: Reports: Bruising Neurological: Denies: Headache Psychiatric: Reports: No Symptoms ED EXAM, GI/ABD - Physical Exam Exam: See Below Exam Limited By: No Limitations General Appearance: Alert, No Apparent Distress (Patient appears tired, pale) Head: Other (Some bruising is present around the right eye from a recent fall) Neck: Supple, Non-Tender Respiratory/Chest: No Respiratory Distress, Lungs Clear Cardiovascular: Regular Rate, Rhythm GI/Abdominal Exam: Soft, Non-Tender Course - Vital Signs Last Recorded V/S: Last Vital Signs Temp 97.7 F 08/25/17 21:40 Pulse 92 08/25/17 21:40 Resp 18 08/25/17 21:40 BP 128/82 08/25/17 21:40 Pulse Ox 94 L 08/25/17 21:40 - Orders/Labs/Meds Labs: Laboratory Tests 08/25/17 08/25/17 Range/Units 21:22 21:22 WBC 11.7 H (4.5-11.0) K/uL RBC 4.41 (4.30-5.90) M/uL Hgb 13.1 D (12.0-15.0) g/dL Hct 38.5 L (40.0-54.0) % MCV 87 (80-98) fL MCH 30 (27-31) pg MCHC 34 (32-36) % Plt Count 510 H (150-400) K/uL Neut % (Auto) 47 (36-66) % Lymph % (Auto) 35 (24-44) % [place] % (Auto) 17 H (2-6) % Eos % (Auto) 0 L (2-4) % Baso % (Auto) 0 (0-1) % Sodium 140 (140-148) mmol/L Potassium 3.2 L (3.6-5.2) mmol/L Chloride 102 (100-108) mmol/L Carbon Dioxide 26 (21-32) mmol/L Anion Gap 15.2 H (5.0-14.0) mmol/L BUN 8 (7-18) mg/dL Creatinine 0.8 (0.8-1.3) mg/dL Est Cr Clr Drug Dosing 82.24 mL/min Estimated GFR (MDRD) > 60 (>60) Glucose 141 H (74-106) mg/dL Calcium 9.4 (8.5-10.1) mg/dL Meds: Medications Discontinued Medications Generic Name Dose Route Start Last Admin Trade Name Freq PRN Reason Stop Dose Admin Ondansetron HCl 4 mg 08/25/17 21:10 08/25/17 21:16 Zofran Odt PO 08/25/17 21:11 4 mg ONETIME ONE Administration - Re-Assessments/Exams Free Text/Narrative Re-Assessment/Exam: 08/25/17 21:12 Patient was given 4 mg of sublingual Zofran, a BMP and CBC were drawn. 08/25/17 21:55 hemoglobin returned 13.1. Labs were reassuring and the patient felt much better after the Zofran. He was discharged with 5 additional sublingual doses. Departure - Departure Time of Disposition: 22:14 Disposition: Home, Self-Care 01 Condition: Good Clinical Impression: Vomiting - Discharge Information Instructions: Nausea and Vomiting, Adult Referrals: Aki Slaughter MD [Primary Care Provider] - Forms: ED Department Discharge Care Plan Goals: Only liquids tonight and advance diet tomorrow as tolerated. Use Zofran for nausea if needed and return anytime if worsening or concerns. I feel you should be able to restart your chemotherapy tomorrow if you feel better.
[2017-08-25 22:21] VITALS: BP 128/82
== END 2017-08-25 22:14 | disposition home or self-care (01) ==
LOC: JP.ED 20:02
DX: R11.10 Vomiting, unspecified (principal); K21.9 Gastro-esophageal reflux disease without esophagitis; E11.9 Type 2 diabetes mellitus without complications; C25.9 Malignant neoplasm of pancreas, unspecified; Z88.7 Allergy status to serum and vaccine; Z88.0 Allergy status to penicillin; Z79.899 Other long term (current) drug therapy; Z87.442 Personal history of urinary calculi
CPT/HCPCS: 36415; 80048; 85025; 99284; A9270

== ENCOUNTER 2017-12-08 09:08 | Emergency (ER) | payer MEDICARE ==
[2017-12-08 09:22] VITALS: BP 129/87
[2017-12-08] MEDS ORDERED: Ketorolac 30 MG/ML SDV IM ONE (09:32)
--- NOTE | 2017-12-08 09:32 | EDM.PDOC ---
ED HPI GENERAL MEDICAL PROBLEM - General Chief Complaint: Head Injury Stated Complaint: FELL AND HIT HEAD ON TABLE Time Seen by Provider: 12/08/17 09:30 Source of Information: Reports: Patient, Family, RN History Limitations: Reports: No Limitations - History of Present Illness INITIAL COMMENTS - FREE TEXT/NARRATIVE: 72 yo male on chemo tripped on some sandals this morning hitting the back of his neck, this occurred about 0830h. There was no LOC. He does report a CARMONA and had transient nausea that has since resolved. He has no neck pain. His states that he is acting his normal. On no anticoagulants. 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) (none) - Related Data Allergies Allergy/AdvReac Type Severity Reaction Status Date / Time Influenza Virus Vaccines Allergy Severe Respiratory Verified 12/08/17 09:18 Distress Penicillins Allergy Severe Swelling Verified 12/08/17 09:18 Home Meds: Home Meds Prochlorperazine Maleate [Compazine] 1 tab PO Q6H PRN 06/19/17 [History] Escitalopram [Lexapro] 10 mg PO DAILY 07/22/17 [History] Ondansetron [Zofran ODT] 4 mg PO ASDIRECTED PRN 07/22/17 [History] Omeprazole Magnesium [Prilosec Otc] 20 mg PO DAILY 08/17/17 [History] glipiZIDE [Glucotrol] 5 mg PO BID 11/11/17 [History] Past Medical History HEENT History: Reports: Hard of Hearing Cardiovascular History: Reports: None Other Respiratory History: 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 Dermatologic History: Reports: None Other Dermatologic History: 2 month history of left hand bumps - Infectious Disease History Infectious Disease History: Reports: Chicken Pox, Influenza - Past Surgical History Head Surgeries/Procedures: Reports: None HEENT Surgical History: Reports: Other (See Below) Other HEENT Surgeries/Procedures: both side staminectomy Cardiovascular Surgical History: Reports: Vascular Surgery Respiratory Surgical History: Reports: Other (See Below) Other Respiratory Surgeries/Procedures: bronchoscopy GI Surgical History: Reports: Other (See Below) Other GI Surgeries/Procedures: exp lap, 2 stents in pancreas Male Surgical History: Reports: None Endocrine Surgical History: Reports: None Neurological Surgical History: Reports: None Musculoskeletal Surgical History: Reports: Other (See Below) Other Musculoskeletal Surgeries/Procedures:: arm surgery plate and ligment repair Oncologic Surgical History: Reports: None Dermatological Surgical History: Reports: None Social & Family History - Family History Family Medical History: Noncontributory - Tobacco Use Smoking Status *Q: Former Smoker Used Tobacco, but Quit: Yes Month/Year Tobacco Last Used: 1985 Second Hand Smoke Exposure: No - Caffeine Use Caffeine Use: Reports: None - Recreational Drug Use Recreational Drug Use: No - Living Situation & Occupation Living situation: Reports: Occupation: Retired ED ROS GENERAL - Review of Systems Review Of Systems: See Below Constitutional: Reports: No Symptoms HEENT: Reports: Other (occipital tenderness) Respiratory: Reports: No Symptoms Cardiovascular: Reports: No Symptoms GI/Abdominal: Reports: Nausea (resolved.). Denies: Vomiting : Reports: No Symptoms Musculoskeletal: Reports: No Symptoms Skin: Reports: No Symptoms Neurological: Reports: Headache Psychiatric: Reports: No Symptoms ED EXAM, HEAD INJURY - Physical Exam Exam: See Below Exam Limited By: No Limitations General Appearance: Alert, WD/WN, No Apparent Distress Head: Scalp Swelling (L occiput), Scalp Tenderness (L occiput) Nexus Criteria: No: Evidence of Intoxication, Focal Neurological Deficit Eyes: Bilateral Eye: Normal Inspection, PERRL Ears: Normal External Exam, Normal Canal, Hearing Grossly Normal, Normal TMs Nose: Normal Inspection, Normal Mucousa, No Blood Throat/Mouth: Normal Inspection, Normal Lips, Normal Teeth, Normal Oropharynx, Normal Voice, No Airway Compromise Neck: Non-Tender, Full Range of Motion, Normal Alignment Respiratory: No Respiratory Distress, Lungs Clear, Normal Breath Sounds, No Accessory Muscle Use Cardiovascular: Regular Rate, Rhythm Back Exam: Normal Inspection Extremities: Normal Inspection, Normal Range of Motion, Non-Tender, No Pedal Edema 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: 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 II-XII nml As Tested, No Motor/Sensory Deficits, Alert, Normal Mood/Affect, Oriented x 3 Skin: Normal Color, Warm/Dry - Isaac Coma Score Best Eye Response (Isaac): (4) Open Spontaneously Best Verbal Response (Isaac): (5) Oriented Best Motor Response (Isaac): (6) Obeys Commands Naselle Total: 15 Course - Vital Signs Last Recorded V/S: Last Vital Signs Temp 36.3 C 12/08/17 09:27 Pulse 98 12/08/17 09:27 Resp 15 12/08/17 09:27 BP 129/87 12/08/17 09:27 Pulse Ox 97 12/08/17 09:27 - Orders/Labs/Meds Meds: Medications Discontinued Medications Generic Name Dose Route Start Last Admin Trade Name Jenifer PRN Reason Stop Dose Admin Ketorolac Tromethamine 30 mg 12/08/17 09:32 Toradol IM 12/08/17 09:33 ONETIME ONE Departure - Departure Time of Disposition: 09:47 Disposition: Home, Self-Care 01 Condition: Good Clinical Impression: Scalp contusion Qualifiers: Encounter type: initial encounter Qualified Code(s): S00.03XA - Contusion of scalp, initial encounter - Discharge Information *PRESCRIPTION DRUG MONITORING PROGRAM REVIEWED*: Not Applicable *COPY OF PRESCRIPTION DRUG MONITORING REPORT IN PATIENT BIRD: Not Applicable Instructions: Contusion, [id number] Referrals: Aki Slaughter MD [Primary Care Provider] - Forms: ED Department Discharge Additional Instructions: Take acetaminophen as needed for pain/Headache today. Rest. Return if worse.
== END 2017-12-08 09:52 | disposition home or self-care (01) ==
LOC: JP.ED 09:08
DX: S00.03XA Contusion of scalp, initial encounter (principal); E11.9 Type 2 diabetes mellitus without complications; K21.9 Gastro-esophageal reflux disease without esophagitis; Z88.0 Allergy status to penicillin; Z88.7 Allergy status to serum and vaccine; Z87.891 Personal history of nicotine dependence; W22.8XXA Striking against or struck by other objects, initial encounter
CPT/HCPCS: 96372; 99284; J1885